=== PATIENT | male | born 1945 | race Caucasian/White ===

== ENCOUNTER 2017-03-04 19:09 | Inpatient (IN) ==
[2017-03-04] MEDS ORDERED: Clindamycin 900 MG/50 ML 900 MG/50 ML IV.SOLN IVPB ONE (19:58)
--- NOTE | 2017-03-04 20:05 | Emergency Department Note ---
Disposition Clinical Impression: Cellulitis Qualifiers: Site of cellulitis: extremity Site of cellulitis of extremity: lower extremity Laterality: right Qualified Code(s): L03.115 - Cellulitis of right lower limb Disposition: Admitted As Inpatient Condition: Undetermined Time of Disposition: 20:22 Wound/Laceration HPI - General Chief Complaint: ED Wound/Laceration Stated Complaint: from UC// cellulitis Time Seen by Provider: 03/04/17 19:50 Source: patient, family Mode of arrival: wheelchair Limitations: no limitations Nursing Notes Reviewed: Yes Vital Signs Reviewed: Yes - History of Present Illness HPI Narrative: 71-year-old male with history of COPD, hypertension, arrives [facility] emergency department roughly 6 days after the patient fell into a saw blade. The patient states that he had a laceration but waited at roughly 9 hours before coming into the emergency department. The patient states that he had his laceration sewn up here in the emergency departmentto [facility]. The patient states over the course of the past 6 days he has become extremely tender in his right lower extremity as well as worsening erythema. The patient denies any fevers but does admit to chills. The patient has been taking his antibiotic as prescribed. The patient states that his marked the erythema on Monday, 3 days ago. The patient's erythema has worsened since then. The patient admits to moderate to severe amount of tenderness in his right lower extremity. The patient does have peripheral vascular disease but palpable pulses of bilateral lower extremities. The patient states he is having difficulty ambulating due to the pain. Patient denies any other symptoms at this time. Onset (ago): day(s) (6) Extremity Location: Right: lower leg Place: home Patient Tetanus UTD: Yes Mechanism: fall Associated symptoms: Reports: none Pain Severity: severe Pain Scale: 9 Treatments prior to arrival: other (antibiotics, dressing, suture) - Related Data Home Medications Medication Instructions Recorded Confirmed Albuterol Sulfate [Albuterol 2 puff IH Q4HR PRN 04/24/15 01/23/17 Inhaler] Allopurinol [Zyloprim] 300 mg PO QAM 04/24/15 01/23/17 Budesonide/Formoterol 160/4.5 2 puff IH BID PRN 04/24/15 01/23/17 [Symbicort] Cholecalciferol (Vitamin D3) 2,000 unit PO QAM 04/24/15 01/23/17 [Vitamin D3] HYDROcodone/Acet 7.5/325 mg [[place] 1 tab PO QID PRN 04/24/15 01/23/17 7.5-325 mg] Omeprazole [PriLOSEC] 20 mg PO QAM 04/24/15 01/23/17 Lisinopril [Zestril] 2.5 mg PO DAILY 07/30/15 01/23/17 Albuterol Neb [AccuNeb] 1.25 mg IH AD 01/23/17 01/23/17 Tiotropium [Spiriva] 18 mcg IH 0700 01/23/17 01/23/17 Previous Rx's Medication Instructions Recorded Rivaroxaban [Xarelto] 15 mg PO QAM #90 tablet 05/26/15 Furosemide [Lasix] 20 mg PO DAILY 30 Days 10/23/15 Sulfamethoxazole/Trimeth DS 1 each PO BID #14 tablet 02/26/17 [Bactrim DS] Allergies Allergy/AdvReac Type Severity Reaction Status Date / Time Tizanidine [From Zanaflex] Allergy Hypotension Verified 03/04/17 19:14 gabapentin [From Neurontin] AdvReac See Verified 01/23/17 15:23 Comments Hydromorphone [From Dilaudid] AdvReac Vomiting Verified 03/04/17 19:14 Pneumococcal Vaccine AdvReac Redness of Verified 01/23/17 15:23 Skin All systems ED: reviewed and negative except as stated. Constitutional: Reports: chills. Denies: fever, weakness, weight change Cardiovascular: Denies: chest pain, palpitations, dyspnea on exertion, edema, syncope Respiratory: Denies: cough, dyspnea, wheezes, hemoptysis, stridor Gastrointestinal: Denies: abdominal pain, nausea, vomiting, diarrhea, constipation, hematemesis, melena, hematochezia Genitourinary: Denies: urgency, dysuria, frequency, hematuria Musculoskeletal: Reports: myalgia. Denies: back pain, neck pain, arthralgia Integumentary: Reports: lesions. Denies: rash, abrasion Neurological: Denies: headache, weakness, numbness, paresthesias, confusion, abnormal gait, vertigo Past Medical History - Past Medical History Attestation: Yes The following information was validated with the patient. Source: patient Medical history: Reports: atrial fibrillation, COPD, DVT, hypertension, pulmonary embolus, other Surgical history: Reports: herniorrhaphy, knee replacement, orthopedic, other, sinus surgery, other Psychiatric history: Reports: no psych history - Social History Smoking Status: Never smoker Smokeless Tobacco Status: No Alcohol use: Reports: none Drug use: Reports: none Physical Exam - General Limitations: no limitations General appearance: alert, in no apparent distress - ENT ENT exam: normal exam, normal oropharynx, mucous membranes moist - Neck Neck exam: Present: normal inspection, full ROM, trachea midline - Chest Chest inspection: Present: normal inspection, symmetric chest wall rise - Respiratory Respiratory exam: Present: normal lung sounds bilaterally - Cardiovascular Cardiovascular exam: Present: regular rate, irregular rhythm, normal heart sounds - Abdominal Exam Abdominal exam: Present: soft, Non-Tender. Absent: tenderness, distention, guarding, rebound, rigidity - Extremities Exam Extremities exam: Present: full ROM, tenderness (RLE), other (6 cm laceration with suture repair with surrounding erythema on right lower extremity anterior stark. The patient has a large amount of tenderness in the same location. There is a moderate amount of erythema that is both superior and inferior to laceration site.) - Back Exam Back exam: Present: normal inspection, full ROM. Absent: tenderness - Neurological Exam Neurological exam: Present: alert, oriented X3 Course Vital Signs Temperature 97.8 F 03/04/17 19:14 Pulse Rate 55 03/04/17 19:14 Respiratory Rate 18 03/04/17 19:14 Blood Pressure 107/66 03/04/17 19:14 O2 Sat by Pulse Oximetry 94 03/04/17 19:14 Temperature 97.8 F 03/04/17 19:14 Pulse Rate 55 03/04/17 19:14 Respiratory Rate 18 03/04/17 19:14 Blood Pressure 107/66 03/04/17 19:14 O2 Sat by Pulse Oximetry 94 03/04/17 19:14 Oxygen Delivery Oxygen Delivery Room Air Wound/Laceration - [facility] Narrative Medical decision making narrative: Patient's x-ray at bedside reveals no obvious gas or deformity to bone. Labs are currently pending. We began the patient on IV clindamycin. This was discussed with the hospitalist, Dr. Mendoza, who accepts the patient to the hospital for admission. - Lab Data Result diagrams: 03/04/17 20:27 Lab Results 03/04/17 Range/Units 20:27 WBC 9.4 (4.3-11.1) K/mcL RBC 5.83 H (4.19-5.50) M/mcL Hgb 15.2 (12.9-16.9) g/dL Hct 47.4 (37.5-50.1) % MCV 81.3 L (83.0-100.0) fL MCH 26.1 L (28.0-33.3) pg MCHC 32.1 (31.6-35.5) g/dL RDW 21.1 H (11.5-14.5) % Plt Count 252 (140-400) K/mcL MPV 9.9 (9.4-12.4) fL Immature Gran % 0.4 (0-4) % Seg Neutrophils % 73.1 % Lymphocytes % 11.0 % Monocytes % 8.3 % Eosinophils % 6.0 % Basophils % 1.2 % Neutrophils # 6.9 (1.6-8.9) K/mcL Lymphocytes # 1.0 (0.6-4.6) K/mcL Monocytes # 0.8 (0.0-1.3) K/mcL Eosinophils # 0.6 (0.0-0.6) K/mcL Basophils # 0.1 (0.0-0.2) K/mcL Attestation Statement - Attestation Attestation: Patient was seen with resident physician. I reviewed the history, physical, assessment and plan, and agree with the findings. I also personally evaluated this patient and had aays-tc-lmpi time with this patient. 71-year-old male presents to the emergency department with worsening redness and infection of the right lower extremity. Patient lacerated his wound approximately a week ago working on some kind of saw. Patient states that he was seen in the emergency department approximately 10 hours after the original injury. The wound was repaired using started on Bactrim. But in going home he has noticed that the erythema which was originally marked on his gotten bigger in the areas gotten more painful. He was seen in urgent care who thought that he probably needed IV antibiotics was sent to the emergency department. Patient has a history of pulmonary embolism as well as atrial fibrillation. For which he takes medication. On examination vital signs are stable. ENT is unremarkable. Heart normal. Lungs normal. [place]man soft nontender. Extremities patient has evidence of venous insufficiency in the right lower extremity anterior stark he has multiple intact sutures but an area of what appears to be centralized necrosis that is mild in nature, and an area of expanding erythema which is tender to palpation and mildly warm. Neurologically patient is intact. ED course. X-rays do not reveal any obvious bony abnormality or gas in the tissue. We will start with IV clindamycin and admit the patient for IV antibiotic therapy. Hospitalist was notified as the need for admission. Agree with resident physician assessment and plan.
[2017-03-04 20:42] LABS: Basophils # 0.1 K/mcL (0.0-0.2); Basophils % 1.2 %; Eosinophils # 0.6 K/mcL (0.0-0.6); Hematocrit 47.4 % (37.5-50.1); Hemoglobin 15.2 g/dL (12.9-16.9); Immature Granulocytes % 0.4 % (0-4); Mean Corpuscular HGB Conc 32.1 g/dL (31.6-35.5); Mean Corpuscular Hemoglobin 26.1 pg (28.0-33.3); Mean Corpuscular Volume 81.3 fL (83.0-100.0); Mean Platelet Volume 9.9 fL (9.4-12.4); Monocytes # 0.8 K/mcL (0.0-1.3); Monocytes % 8.3 %; Neutrophils # 6.9 K/mcL (1.6-8.9); Platelet Count 252 K/mcL (140-400); Red Blood Count 5.83 M/mcL (4.19-5.50); Red Cell Distribution Width 21.1 % (11.5-14.5); Segmented Neutrophils % 73.1 %
[2017-03-04 20:57] LABS: Calcium 9.6 mg/dL (8.6-10.8); Potassium 4.6 mEq/L (3.5-4.5)
[2017-03-04] MEDS ORDERED: Naloxone 0.4 MG/ML INJ IVP PRN (21:31)
[2017-03-04] MEDS ORDERED: Acetaminophen 325 MG TABLET PO PRN (21:31)
[2017-03-04] MEDS ORDERED: Ondansetron 4 MG/2 ML VIAL IVP PRN (21:31)
[2017-03-04] MEDS ORDERED: Dextrose Gel 15 GM PO PRN ×2 (21:34)
[2017-03-04] MEDS ORDERED: *HR* Dextrose 50 % in Water (Syg) 50 ML SYRINGE IVP PRN (21:34)
[2017-03-04] MEDS ORDERED: D5% in Water 1,000 ML IVC PRN (21:34)
--- NOTE | 2017-03-04 21:40 | Internal Med History&Physical ---
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 (3) Essential hypertension Current visit: Yes Status: Chronic Essential hypertension, controlled, continue home meds, monitor (4) COPD (chronic obstructive pulmonary disease) Current visit: Yes Status: Chronic Chronic stable, not in exacerbation Continue Symbicort and Spiriva Qualifiers: COPD type: emphysema Emphysema type: unspecified Qualified Code(s): J43.9 - Emphysema, unspecified (5) JAIDA (obstructive sleep apnea) Current visit: Yes Status: Chronic Chronic obstructive sleep apnea Continue CPAP (6) Atrial fibrillation Current visit: No Status: Chronic Chronic atrial fibrillation, rate controlled Continue anticoagulation with Xarelto Qualifiers: Atrial fibrillation type: chronic Qualified Code(s): I48.2 - Chronic atrial fibrillation (7) Morbid obesity Current visit: Yes Status: Chronic Qualifiers: Obesity type: unspecified obesity type Qualified Code(s): E66.01 - Morbid ( severe) obesity due to excess calories (8) DVT prophylaxis Current visit: Yes Status: Acute Continue Xarelto Internal Medicine - H&P: HPI Admitted From: Emergency Dept History of present illness: Mr. Fernando is a 71 year old male with past medical history of atrial fibrillation, COPD, DVT, PE, obstructive sleep apnea and hypertension. Patient presents to the ED with complaints of pain and redness over her right lower leg. Patient states he had a laceration about 6 days ago, which required sutures. He apparently fell on the saw blade. Patient apparently waited for about the 9 hours before coming into the ED for the laceration. Patient states he is having worsening redness and pain over his right lower leg. Worse with movement. No alleviating factors. Pain is sharp and rates it about 7 out of 10. Pain does not radiate. He does have mild right lower leg swelling. Denies chest pain, denies shortness of breath, denies palpitations, denies dizziness or lightheadedness denies cough or abdominal pain or nausea or vomiting. No other associated symptoms. On examination patient is awake and alert. Not in any distress. Able to provide all history. No family at bedside. Initial workup shows white count of 9.4 and creatinine of 2.36. Extremities right lower leg does not show any acute process. Patient is not tachycardic and does not have fever. There is tenderness and erythema of the right lower extremity anteriorly, extending from the laceration site down to almost his foot. Patient does have a healing laceration with sutures. Patient is being admitted for cellulitis of the right lower leg. He will need IV antibiotics. He has been on by mouth Bactrim for the past 6 days. Patient has been explained about his condition and plan of care. He understood and agreed. No unanswered questions. CODE STATUS full code Past Med Surg Social Fam HX - Past Medical History Medical history: atrial fibrillation, COPD, DVT, hypertension, pulmonary embolus , other Psychiatric history: no psych history - Past Surgical History Surgical History: herniorrhaphy, knee replacement, orthopedic, other, sinus surgery, other - Social History Smoking Status: Never smoker Smokeless Tobacco Status: No Alcohol use: none Drug use: none - Family History Father Adopted: No Living Status: Hx Family Cardiac Disorders: Yes Hx Family Respiratory Disorders: Yes Hx Family Cancer: No Hx Family GI Disorders: No Hx Family Endocrine Disorder: No Hx Family Neuromuscular Disorders: No Hx Family Neurologic Disorders: No Hx Family HEENT Disorders: No Hx Family Autoimmune Disorders: No Mother Adopted: No Living Status: Hx Family Autoimmune Disorders: Yes Brother Living Status: Still Living Hx Family Cancer: Yes (gabe) Internal Medicine - H&P: Meds Albuterol Sulfate [Albuterol Inhaler] 2 puff IH Q4HR PRN 04/24/15 [History] Allopurinol [Zyloprim] 300 mg PO QAM 04/24/15 [History] Budesonide/Formoterol 160/4.5 [Symbicort] 2 puff IH BID PRN 04/24/15 [History] Cholecalciferol (Vitamin D3) [Vitamin D3] 2,000 unit PO QAM 04/24/15 [History] HYDROcodone/Acet 7.5/325 mg [[place] 7.5-325 mg] 1 tab PO QID PRN 04/24/15 [ History] Omeprazole [PriLOSEC] 20 mg PO QAM 04/24/15 [History] Rivaroxaban [Xarelto] 15 mg PO QAM #90 tablet 05/26/15 [Rx] Lisinopril [Zestril] 2.5 mg PO DAILY 07/30/15 [History] Furosemide [Lasix] 20 mg PO DAILY 30 Days 10/23/15 [Rx] Albuterol Neb [AccuNeb] 1.25 mg IH AD 01/23/17 [History] Tiotropium [Spiriva] 18 mcg IH 0700 01/23/17 [History] Sulfamethoxazole/Trimeth DS [Bactrim DS] 1 each PO BID #14 tablet 02/26/17 [Rx] Allergies Tizanidine [From Zanaflex] Allergy (Verified 03/04/17 19:14) Hypotension gabapentin [From Neurontin] Adverse Reaction (Verified 01/23/17 15:23) See Comments Makes him feel odd. Hydromorphone [From Dilaudid] Adverse Reaction (Verified 03/04/17 19:14) Vomiting Pneumococcal Vaccine Adverse Reaction (Verified 01/23/17 15:23) Redness of Skin All Systems PM: A 10-system review of systems was performed and is negative for pertinent findings except as documented above in the HPI. - Constitutional Constitutional: fatigue, no fever(s) - EENT Eyes: no blurry vision, no loss of vision - Cardiovascular Cardiovascular ROS IM: no chest pain, no diaphoresis, no dyspnea, no dyspnea on exertion, no lightheadedness, no syncope - Respiratory Respiratory: no cough, no dyspnea, no dyspnea on exertion, no wheezing, no chest congestion - Gastrointestinal Gastrointestinal: no abdominal pain, no cramping, no diarrhea, no vomiting - Musculoskeletal Musculoskeletal ROS IM: other (Right lower leg pain) - Integumentary Integumentary IM: erythema - Neurological Neurological ROS: no abnormal gait, no abnormal speech, no dizziness, no focal weakness, no loss of vision - Constitutional Vitals: Temp Pulse Resp BP Pulse Ox 97.8 F 55 16 109/64 96 03/04/17 19:14 03/04/17 21:03 03/04/17 21:25 03/04/17 21:25 03/04/17 21:03 General appearance: Present: A&O X 3, morbidly obese, pleasant, no acute distress, answers questions appropriately - Head Head exam: Present: atraumatic - ENT ENT exam: Present: mucous membranes moist - Neck Neck exam general surgery: Present: supple - Respiratory Respiratory exam: Present: CTAB. Absent: rales, rhonchi, tachypnea - Cardiovascular Cardiovascular exam: Present: RRR, +S1, +S2 - GI/Abdominal GI/Abdominal exam: Present: distended (Obese), soft. Absent: firm, guarding, tenderness - Extremities Exam Extremities exam: Present: radial pulses palpable and symetrical. Absent: cyanotic Additional comments: Right lower leg erythema++, tenderness++, swelling+, healing laceration Cellulitis of right lower leg measuring almost 8 cm x 5 cm - Neurological Exam Neurological exam: Present: alert, oriented X3, no focal deficits Internal Med - H&P Results - Labs CBC & Chem 7: 03/04/17 20:27 03/04/17 20:27
[2017-03-04] MEDS ORDERED: Albuterol Neb 1.25 MG/3 ML VIAL IH SCH (21:45)
[2017-03-04] MEDS ORDERED: 0.9 % Sodium Chloride 1,000 ML IVC SCH (21:45)
[2017-03-04 21:50] LABS: INR 1.9
[2017-03-04] MEDS: Vancomycin 2,000 MG in D5% in Water 500 ML IVPB SCH (23:12)
[2017-03-04] MEDS: Budesonide/Formoterol 160/4.5 MDI IH SCH (23:33)
[2017-03-05] MEDS ORDERED: Insulin LISPRO 300 UNITS/3 ML VIAL SQ SCH
[2017-03-05] MEDS: Piperacillin/Tazobactam 3.375 GM in D5% in Water (Mini-Bag+) 100 ML IVPB SCH ×3 (01:00→16:38)
[2017-03-05] MEDS: *HR* Morphine 2 MG/ML SYRINGE IVP PRN ×4 (03:36→22:05)
[2017-03-05 04:03] LABS: Hematocrit 44.4 % (37.5-50.1); Hemoglobin 14.3 g/dL (12.9-16.9); Mean Corpuscular HGB Conc 32.2 g/dL (31.6-35.5); Mean Corpuscular Hemoglobin 25.9 pg (28.0-33.3); Mean Corpuscular Volume 80.4 fL (83.0-100.0); Mean Platelet Volume 9.6 fL (9.4-12.4); Platelet Count 222 K/mcL (140-400); Red Blood Count 5.52 M/mcL (4.19-5.50); Red Cell Distribution Width 20.6 % (11.5-14.5)
[2017-03-05 04:13] LABS: Magnesium 2.1 mg/dL (1.6-2.6); Potassium 4.2 mEq/L (3.5-4.5)
[2017-03-05] MEDS ORDERED: Vancomycin 1,000 MG in D5% in Water 250 ML IVPB SCH (06:00)
[2017-03-05] MEDS: Famotidine 20 MG/2 ML VIAL IVP SCH ×2 (06:05→16:38)
[2017-03-05] MEDS: Tiotropium 18 MCG inhalation IH SCH (08:18)
[2017-03-05] MEDS: Budesonide/Formoterol 160/4.5 MDI IH SCH ×2 (08:19→20:27)
[2017-03-05] MEDS: Furosemide 20 MG TABLET PO SCH (08:30)
[2017-03-05] MEDS: Cholecalciferol (D-3) 1,000 UNIT TABLET PO SCH (08:30)
[2017-03-05] MEDS: *HR* Rivaroxaban 15 MG TABLET PO SCH (08:30)
--- NOTE | 2017-03-05 14:46 | Electrocardiograph Report ---
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
--- NOTE | 2017-03-05 16:38 | Internal Med Progress Note ---
Date of Encounter: 03/05/17 Time of Encounter: 16:35 - Assessment and plan (1) COPD (chronic obstructive pulmonary disease) Current Visit: Yes Status: Chronic Assessment and plan: Similar this point continue inhalers continue inhalers Qualifiers: COPD type: emphysema Emphysema type: unspecified Qualified Code(s): J43.9 - Emphysema, unspecified (2) Renal failure (ARF), acute on chronic Current Visit: Yes Status: Acute Assessment and plan: Acute on chronic renal failure I will however we do not know his baseline. With IV fluid creatinine has slowly started coming down and will monitor it. (3) Laceration of lower leg, right Current Visit: Yes Status: Acute Qualifiers: Encounter type: initial encounter Qualified Code(s): S81.811A - Laceration without foreign body, right lower leg, initial encounter (4) Cellulitis of right leg Current Visit: Yes Status: Acute Assessment and plan: His right leg is quite tender I will try to rule out osteoarthritis by ordering a bone scan and CRP he is already on IV vancomycin and clindamycin. Admitting M.D. also put him on Zosyn which seems excessive and can be DC'd once cultures are available. (5) DVT prophylaxis Current Visit: Yes Status: Acute Assessment and plan: Already on anticoagulation at [facility] (6) Atrial fibrillation Current Visit: Yes Status: Chronic Assessment and plan: On anticoagulation and rate control Qualifiers: Atrial fibrillation type: chronic Qualified Code(s): I48.2 - Chronic atrial fibrillation - Subjective Interval history: Mr. Jamie Fernando is a 71-year-old male is admitted for right lower extremity cellulitis. Apparently a few days back circular saw fell on his right leg and he sustained several sutures. Not the area surrounding sutures has got red and painful and therefore he came to ER. His requested to be admitted. His IV antibiotics including vancomycin, clindamycin and Zosyn. In the right leg sutured wound does not look good and is quite tender and probably sutures need to be removed. Since this is right at his stark I will order a bone scan and CRP as well as repeat white count and a CMP to rule out osteomyelitis. I will also consult orthopedics. Patient creatinine is elevated and he came in with 2.36 level which has come down to 1.9 this morning. I am not sure if this is old or new but since it is improving we should continue IV antibiotics. He also has history of DVT and PE. His INR on admission is 1.9. He is on Xarelto. - Constitutional Vitals: Temp Pulse Resp BP Pulse Ox 98.3 F 67 20 90/52 98 03/05/17 15:02 03/05/17 15:02 03/05/17 15:02 03/05/17 15:02 03/05/17 15:02 General appearance: Present: A&O X 3, morbidly obese, pleasant, no acute distress, answers questions appropriately - Head Head exam: Present: atraumatic, normocephalic - Eye Eye exam: Present: PERRL, conjuntiva pink, sclera anicteric Pupils: Present: PERRL - Neck Neck exam general surgery: Present: supple, trachea midline. Absent: lymphadenopathy - Respiratory Respiratory exam: Present: CTAB. Absent: accessory muscle use, rales, rhonchi, wheezes - Cardiovascular Cardiovascular exam: Present: RRR, +S1, +S2. Absent: diastolic murmur, gallop, rubs, systolic murmur - GI/Abdominal GI/Abdominal exam: Present: normal bowel sounds, soft, no peritoneal signs. Absent: distended, tenderness - Extremities Exam Extremities exam: Present: tenderness, warm, radial pulses palpable and symetrical. Absent: calf tenderness, cyanotic, pedal edema Additional comments: Right lower extremity examined and around the midshaft stark there is a well sutured wound and the surrounding area seems quite indurated and tender and suture seems very tight. As I press gently cause a lot of pain and I was not even able to put enough pressure that I could touch the bone and stark area. I think the sutures need to be out. I tried Homans sign and it is negative - Neurological Exam Neurological exam: Present: CN II-XII intact, oriented X3, no focal deficits. Absent: pronater drift, facial droop, speech deficit - Skin Skin exam: Present: dry, intact Internal Medicine: Result - Labs CBC & Chem 7: 03/05/17 03:43 03/05/17 03:43 Labs: Short CBC 03/05/17 Range/Units 03:43 WBC 7.6 (4.3-11.1) K/mcL Hgb 14.3 (12.9-16.9) g/dL Hct 44.4 (37.5-50.1) % Plt Count 222 (140-400) K/mcL BMP 03/05/17 03:43 Sodium 134 L Potassium 4.2 Chloride 102 Carbon Dioxide 21 BUN 32 H Creatinine 1.94 H Glucose 122 H Calcium 9.0 - ABG Interpretation ABG results: PT/INR, D-dimer PT 21.0 Seconds (9.4-12.1) H 03/04/17 20:27 - Impressions Impressions Chest X-Ray 03/05/17 07:00 IMPRESSION: Stable cardiomegaly and emphysema. No superimposed acute process. No significant change compared to 10/21/2015. D/ / 03/05/2017 09:22:21 Lawrence Schofield MD / sonia Interpreting Provider: Lawrence Schofield MD Consult Discharge Plan - Plan Referrals: Mirela Whitaker, VIDEO CONTROL ENGINEER [Primary Care Provider] -
[2017-03-05 18:21] LABS: Bilirubin,Urine Negative (Negative); Blood,Urine Negative (Negative); Clarity,Urine Clear (Clear); Color,Urine Yellow (Yellow); Glucose,Urine (UA) Normal (Normal); Ketones,Urine Negative (Negative); Leukocyte Esterase,Urine Negative (Negative); Nitrite,Urine Negative (Negative); Protein,Urine Negative (Neg-Trace); Specific Gravity,Urine 1.015 (1.010-1.025); Urobilinogen,Urine Normal (Normal)
--- NOTE | 2017-03-05 19:59 | Orthopedic Consult Note ---
Date of Encounter: 03/05/17 Time of Encounter: 19:52 History of Present Illness Chief complaint: Pain and swelling right stark HPI: Mr. Fernando is a 71 year old male that sustained a laceration to his right proximal anterior tibia one week ago. The patient reportedly fell in the kitchen of the home that he been working on. He struck his right proximal tibia. He is unsure of exactly what he hit, questioning whether there was a sawblade that he struck. He ultimately presented to an urgent care then to [facility]'s emergency room for definitive treatment. He had the wound was sutured. He was sent home on Bactrim prophylaxis. The patient's case is complicated by the fact that he is on Xarelto. Patient also has a knee replacement in the right leg. For complete history and physical data please refer the completed portion of the medical record. Pertinent orthopedic examination reveals a well-healed midline incision over the right knee. The right leg shows a repaired laceration obliquely across the proximal third of the anterior tibia. There is some eschar formation. Repair is intact. There is ruborous skin changes from the wound distal. This is associated with edema in the leg and foot. There are skin wrinkles about the laceration site. Neurosensory exam is intact. Left lower extremity shows brawny skin changes. Reviewed x-rays of the tibia and fibula. This shows no bony changes. A revision type prosthesis in the knee appears to be stable without complicating features. Impression: Healing traumatic laceration right anterior proximal leg Recommendation: I discussed with the patient that I do not see any worrisome findings at this time. I do recommend that he be very conscientious about elevation. I will also recommend the use of Neosporin or bacitracin and a nonadherent dressing. I would maintain the sutures for at least another 5-7 days. These can be taken out by his family physician. I think the patient did have some excessive bleeding due to the Xarelto use, this should not be a concern at this time as all bleeding should have stopped. I discussed with the patient that he is going to have some degree of dependent swelling for a period of time and that elevation is most important in that he can do for his leg. Thank you very much for allowing me to see care for Mr. Fernando. Sincerely, Bob Foote,DO Past Med Surg Social Fam HX - Past Medical History Medical history: atrial fibrillation, COPD, DVT, hypertension, pulmonary embolus , other Psychiatric history: no psych history - Past Surgical History Surgical History: herniorrhaphy, knee replacement, orthopedic, other, sinus surgery, other - Social History Smoking Status: Never smoker Smokeless Tobacco Status: No Alcohol use: none Drug use: none - Family History Father Adopted: No Living Status: Hx Family Cardiac Disorders: Yes Hx Family Respiratory Disorders: Yes Hx Family Cancer: No Hx Family GI Disorders: No Hx Family Endocrine Disorder: No Hx Family Neuromuscular Disorders: No Hx Family Neurologic Disorders: No Hx Family HEENT Disorders: No Hx Family Autoimmune Disorders: No Mother Adopted: No Living Status: Hx Family Autoimmune Disorders: Yes Brother History Unknown: Yes Adopted: No Age: 72 Family Member Ethnicity: Non- Living Status: Still Living Hx Family Cardiac Disorders: No Hx Family Respiratory Disorders: No Hx Family Cancer: Yes (gabe) Hx Family GI Disorders: No Hx Family Genitourinary Disorders: No Hx Family Endocrine Disorder: No Hx Family Musculoskeletal Disorders: No Hx Family Neuromuscular Disorders: No Hx Family Neurologic Disorders: No Hx Family HEENT Disorders: No Hx Family Autoimmune Disorders: No Hx Family Reproductive Disorders: No Hx Family Psychosocial Disorders: No Hx Family Medical Disorders: No Medications and Allergies Albuterol Sulfate [Albuterol Inhaler] 2 puff IH Q4HR PRN 04/24/15 [History] Allopurinol [Zyloprim] 300 mg PO QAM 04/24/15 [History] Budesonide/Formoterol 160/4.5 [Symbicort] 2 puff IH BID PRN 04/24/15 [History] Cholecalciferol (Vitamin D3) [Vitamin D3] 2,000 unit PO QAM 04/24/15 [History] HYDROcodone/Acet 7.5/325 mg [[place] 7.5-325 mg] 1 tab PO QID PRN 04/24/15 [ History] Omeprazole [PriLOSEC] 20 mg PO QAM 04/24/15 [History] Lisinopril [Zestril] 10 mg PO DAILY 07/30/15 [History] Albuterol Neb [AccuNeb] 1.25 mg IH TID 01/23/17 [History] Tiotropium [Spiriva] 18 mcg IH 0700 01/23/17 [History] Sulfamethoxazole/Trimeth DS [Bactrim DS] 1 each PO BID #14 tablet 02/26/17 [Rx] Furosemide [Lasix] 40 mg PO QAM 03/05/17 [History] Rivaroxaban [Xarelto] 20 mg PO DAILY 03/05/17 [History] Allergies Tizanidine [From Zanaflex] Allergy (Verified 03/04/17 19:14) Hypotension gabapentin [From Neurontin] Adverse Reaction (Verified 01/23/17 15:23) See Comments Makes him feel odd. Hydromorphone [From Dilaudid] Adverse Reaction (Verified 03/04/17 19:14) Vomiting Pneumococcal Vaccine Adverse Reaction (Verified 01/23/17 15:23) Redness of Skin All Systems Reviewed: A 10-system review of systems was performed and is negative for pertinent findings except as documented above in the HPI. Physical Exam - Constitutional Vitals: Temp Pulse Resp BP Pulse Ox 98.3 F 67 20 90/52 98 03/05/17 15:02 03/05/17 15:02 03/05/17 15:02 03/05/17 15:02 03/05/17 15:02 Results - Labs Result Diagrams: 03/05/17 03:43 03/05/17 03:43 Labs: Abnormal lab results RBC 5.52 M/mcL (4.19-5.50) H 03/05/17 03:43 MCV 80.4 fL (83.0-100.0) L 03/05/17 03:43 MCH 25.9 pg (28.0-33.3) L 03/05/17 03:43 RDW 20.6 % (11.5-14.5) H 03/05/17 03:43 PT 21.0 Seconds (9.4-12.1) H 03/04/17 20:27 Sodium 134 mEq/L (136-145) L 03/05/17 03:43 BUN 32 mg/dL (8-26) H 03/05/17 03:43 Creatinine 1.94 mg/dL (0.72-1.25) H 03/05/17 03:43 Est GFR ( Amer) 42 (> 60) L 03/05/17 03:43 Est GFR (Non-Af Amer) 34 (> 60) L 03/05/17 03:43 Glucose 122 mg/dL (70-99) H 03/05/17 03:43 POC Glucose 119 (58-89) H 03/04/17 21:54 H & H 03/05/17 Range/Units 03:43 Hgb 14.3 (12.9-16.9) g/dL Hct 44.4 (37.5-50.1) % All other labs normal. - Diagnostic results Knee x-ray: image reviewed (Tibia/Fibula) Consult Discharge Plan - Plan Referrals: Mirela Whitaker, [facility] [Primary Care Provider] -
[2017-03-05] MEDS ORDERED: Neosporin OINT 15 GM TUBE TP SCH (21:00)
[2017-03-05] MEDS: Vancomycin 2,000 MG in D5% in Water 500 ML IVPB SCH (23:03)
[2017-03-06] MEDS: Piperacillin/Tazobactam 3.375 GM in D5% in Water (Mini-Bag+) 100 ML IVPB SCH ×2 (01:08→08:17)
[2017-03-06] MEDS: *HR* Morphine 2 MG/ML SYRINGE IVP PRN (04:22)
[2017-03-06 04:26] LABS: Basophils # 0.1 K/mcL (0.0-0.2); Basophils % 1.4 %; Eosinophils # 0.6 K/mcL (0.0-0.6); Eosinophils % 7.9 %; Hemoglobin 13.9 g/dL (12.9-16.9); Immature Granulocytes % 0.3 % (0-4); Lymphocytes # 1.1 K/mcL (0.6-4.6); Lymphocytes % 14.4 %; Mean Corpuscular HGB Conc 33.1 g/dL (31.6-35.5); Mean Corpuscular Hemoglobin 26.8 pg (28.0-33.3); Mean Corpuscular Volume 81.1 fL (83.0-100.0); Mean Platelet Volume 9.4 fL (9.4-12.4); Monocytes # 0.7 K/mcL (0.0-1.3); Monocytes % 8.7 %; Neutrophils # 5.2 K/mcL (1.6-8.9); Platelet Count 213 K/mcL (140-400); Red Blood Count 5.18 M/mcL (4.19-5.50); Red Cell Distribution Width 20.7 % (11.5-14.5); Segmented Neutrophils % 67.3 %
[2017-03-06 05:30] LABS: Albumin 3.2 g/dL (3.5-5.0); Albumin/Globulin Ratio 1.2 (1.1-2.2); Bilirubin,Total 0.7 mg/dL (0.2-1.2); Calcium 8.9 mg/dL (8.6-10.8); Globulin 2.7 g/dL (2.4-3.5); Total Protein 5.9 g/dL (6.0-8.3)
[2017-03-06 05:32] LABS: Potassium 4.7 mEq/L (3.5-4.5)
[2017-03-06] MEDS: Famotidine 20 MG/2 ML VIAL IVP SCH (05:37)
[2017-03-06] MEDS: Cholecalciferol (D-3) 1,000 UNIT TABLET PO SCH (08:18)
[2017-03-06] MEDS: Furosemide 20 MG TABLET PO SCH (08:18)
[2017-03-06] MEDS: *HR* Rivaroxaban 15 MG TABLET PO SCH (08:18)
[2017-03-06 11:29] VITALS: BP 125/78
[2017-03-06] MEDS: Tiotropium 18 MCG inhalation IH SCH (12:34)
[2017-03-06] MEDS: Budesonide/Formoterol 160/4.5 MDI IH SCH (12:34)
--- NOTE | 2017-03-06 15:44 | Discharge Summary ---
Date of Encounter: 03/06/17 Time of Encounter: 15:42 - Discharge Diagnosis (1) COPD (chronic obstructive pulmonary disease) Priority: Secondary Status: Chronic Qualifiers: COPD type: emphysema Emphysema type: unspecified Qualified Code(s): J43.9 - Emphysema, unspecified (2) Renal failure (ARF), acute on chronic Priority: Secondary Status: Acute (3) Cellulitis of right leg Priority: Primary Status: Acute (4) DVT prophylaxis Priority: Secondary Status: Acute (5) Atrial fibrillation Priority: Secondary Status: Chronic Qualifiers: Atrial fibrillation type: chronic Qualified Code(s): I48.2 - Chronic atrial fibrillation - Discharge Medications Prescriptions: Amoxicillin/Clavulanate [Augmentin] 875 mg PO BIDWM #20 tablet Sulfamethoxazole/Trimeth DS [Bactrim Ds] 1 each PO BID #20 tablet Home Medications: Albuterol Sulfate [Albuterol Inhaler] 2 puff IH Q4HR PRN 04/24/15 [History] Allopurinol [Zyloprim] 300 mg PO QAM 04/24/15 [History] Budesonide/Formoterol 160/4.5 [Symbicort] 2 puff IH BID PRN 04/24/15 [History] Cholecalciferol (Vitamin D3) [Vitamin D3] 2,000 unit PO QAM 04/24/15 [History] HYDROcodone/Acet 7.5/325 mg [[place] 7.5-325 mg] 1 tab PO QID PRN 04/24/15 [ History] Omeprazole [PriLOSEC] 20 mg PO QAM 04/24/15 [History] Lisinopril [Zestril] 10 mg PO DAILY 07/30/15 [History] Albuterol Neb [AccuNeb] 1.25 mg IH TID 01/23/17 [History] Tiotropium [Spiriva] 18 mcg IH 0700 01/23/17 [History] Furosemide [Lasix] 40 mg PO QAM 03/05/17 [History] Rivaroxaban [Xarelto] 20 mg PO DAILY 03/05/17 [History] Acetaminophen [Tylenol] 650 mg PO Q6HR PRN #0 tablet 03/06/17 [Rx] Amoxicillin/Clavulanate [Augmentin] 875 mg PO BIDWM #20 tablet 03/06/17 [Rx] Furosemide [Lasix] 20 mg PO DAILY tablet 03/06/17 [Rx] Prince/Poly/Marina OINT [Triple Antibiotic Ointment] 1 appl TP DAILY tube 03/06/17 [ Rx] Sulfamethoxazole/Trimeth DS [Bactrim Ds] 1 each PO BID #20 tablet 03/06/17 [Rx] Allergies/Adverse Reactions: Allergies Tizanidine [From Zanaflex] Allergy (Verified 03/04/17 19:14) Hypotension gabapentin [From Neurontin] Adverse Reaction (Verified 01/23/17 15:23) See Comments Makes him feel odd. Hydromorphone [From Dilaudid] Adverse Reaction (Verified 03/04/17 19:14) Vomiting Pneumococcal Vaccine Adverse Reaction (Verified 01/23/17 15:23) Redness of Skin Date of admission: 03/04/17 21:31 Primary care physician: Mirela Whitaker CNP Consults: 03/04/17 21:36 Consult to Wound Care [CONS] Routine Reason for Consult: cellulitis Call Completed: No 03/05/17 00:10 Consult to [facility] [employer] [CONS] Routine Reason for SW Consult: Possible need for home IV antibiotics 03/05/17 16:46 Consult to Orthopedic Surgery [CONS] Routine Consulting Provider: [facility] Reason for Consult: right leg cellulitis/ recently sutured right leg wound Time Notified: 16:48 Call Completed: No Discharging clinician: Kenny Atkins Anticipated date of discharge: 03/06/17 - Patient Status Disposition: Home, Self-Care Condition: Fair Overall status at discharge: patient is progressing back to baseline - Discharge Instructions Follow Up With: Mirela Whitaker CNP [Primary Care Provider] - - Diet and Activity Activity: resume usual activities as tolerated Diet: advance to your usual diet (Daily Dressing on Right Leg with Neosporin and Not Adhering Dry Dressing) Hospital course: Mr. Jamie Fernando is a 71-year-old male is admitted for right lower extremity cellulitis. Apparently a few days back circular saw fell on his right leg and he sustained several sutures. the area surrounding sutures has got red and painful and therefore he came to ER. He is requested to be admitted. His IV antibiotics including vancomycin, clindamycin and Zosyn. Orthopedics saw the wound and feels that it does not look too bad and therefore would not need any further intervention or testing.. Patient has C daily and creatinine remained in stable range during this admission. We will switch him to Augmentin and Bactrim and we have asked him to follow with his family doctor in office this week and have him recheck his BMP. He is on Xarelto. - Time Spent with Patient Total time spent providing and/or coordinating discharge services: - Constitutional Vitals: Temp Pulse Resp BP Pulse Ox 97.6 F 51 15 125/78 95 03/06/17 11:25 03/06/17 11:25 03/06/17 11:25 03/06/17 11:25 03/06/17 11:25 General appearance: Present: A&O X 3, morbidly obese, pleasant, no acute distress, answers questions appropriately - Head Head exam: Present: atraumatic, normocephalic - Eye Eye exam: Present: PERRL, conjuntiva pink, sclera anicteric Pupils: Present: PERRL - Neck Neck exam general surgery: Present: supple, trachea midline. Absent: lymphadenopathy - Respiratory Respiratory exam: Present: CTAB. Absent: accessory muscle use, rales, rhonchi, wheezes - Cardiovascular Cardiovascular exam: Present: RRR, +S1, +S2. Absent: diastolic murmur, gallop, rubs, systolic murmur - GI/Abdominal GI/Abdominal exam: Present: normal bowel sounds, soft, no peritoneal signs. Absent: distended, tenderness - Extremities Exam Extremities exam: Present: warm, radial pulses palpable and symetrical. 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 - Neurological Exam Neurological exam: Present: CN II-XII intact, oriented X3, no focal deficits. Absent: pronater drift, facial droop, speech deficit - Skin Skin exam: Present: dry, intact
[2017-03-06] MEDS ORDERED: Aminoglycoside Consult 1 EACH MC ONE (16:35)
== END 2017-03-06 16:36 | disposition home or self-care (01) | DRG 603 ==
LOC: 3NENU 19:09 → EMEROO 19:09 → 3NENU 21:58
PROVIDERS: ADMIT Family Medicine; ATTEND Internal Medicine

== ENCOUNTER 2017-08-04 10:47 | Inpatient (IN) ==
[2017-08-04] MEDS ORDERED: Ipratropium/Albuterol Neb 3 ML IH ONE (11:10)
[2017-08-04] MEDS ORDERED: methylPREDNISolone 125 MG/2 ML VIAL IVP ONE (11:10)
--- NOTE | 2017-08-04 11:24 | Emergency Department Note ---
Disposition Clinical Impression: Acute exacerbation of chronic obstructive airways disease, Elevated d-dimer Disposition: Admitted As Inpatient Condition: Fair General Adult HPI - General Chief complaint: ED Shortness of Breath/Dyspnea Stated complaint: Can't Breathe Time Seen by Provider: 08/04/17 10:57 Source: patient Limitations: no limitations Nursing Notes Reviewed: Yes Vital Signs Reviewed: Yes - History of Present Illness Pain Scale: 8 - Related Data Home Medications Medication Instructions Recorded Confirmed Albuterol Sulfate [Albuterol 2 puff IH Q4HR PRN 04/24/15 08/04/17 Inhaler] Allopurinol [Zyloprim] 300 mg PO QAM 04/24/15 08/04/17 Budesonide/Formoterol 160/4.5 2 puff IH BID PRN 04/24/15 08/04/17 [Symbicort] Cholecalciferol (Vitamin D3) 2,000 unit PO QAM 04/24/15 08/04/17 [Vitamin D3] HYDROcodone/Acet 7.5/325 mg [[place] 1 tab PO QID PRN 04/24/15 08/04/17 7.5-325 mg] Omeprazole [PriLOSEC] 20 mg PO QAM 04/24/15 08/04/17 Albuterol Neb [AccuNeb] 1.25 mg IH TID PRN 01/23/17 08/04/17 Tiotropium [Spiriva] 18 mcg IH 0700 01/23/17 08/04/17 Furosemide [Lasix] 40 mg PO QAM 03/05/17 08/04/17 Rivaroxaban [Xarelto] 20 mg PO DAILY 03/05/17 08/04/17 Lisinopril [Zestril] 20 mg PO DAILY 08/01/17 08/04/17 Ipratropium Neb [Atrovent Neb] 0.5 mg IH PRN PRN 08/04/17 08/04/17 Allergies Allergy/AdvReac Type Severity Reaction Status Date / Time gabapentin [From Neurontin] AdvReac See Verified 07/26/17 14:02 Comments Hydromorphone [From Dilaudid] AdvReac Vomiting Verified 07/26/17 14:02 Pneumococcal Vaccine AdvReac Redness of Verified 07/26/17 14:02 Skin Tizanidine [From Zanaflex] AdvReac Hypotension Verified 08/01/17 11:05 Past Medical History - Past Medical History Medical history: Reports: atrial fibrillation, COPD, DVT, GERD, hypertension, pulmonary embolus, other Surgical history: Reports: herniorrhaphy, knee replacement, orthopedic, other, sinus surgery, other Psychiatric history: Reports: no psych history - Social History Smoking Status: Former smoker Smokeless Tobacco Status: No Alcohol use: Reports: none Drug use: Reports: none Physical Exam - General Limitations: no limitations General appearance: alert, in no apparent distress Course Vital Signs Temperature 97.6 F 08/04/17 10:53 Pulse Rate 88 08/04/17 10:53 Respiratory Rate 18 08/04/17 10:53 Blood Pressure 145/79 08/04/17 10:53 O2 Sat by Pulse Oximetry 91 08/04/17 10:53 Temperature 97.8 F 08/04/17 14:25 Pulse Rate 84 08/04/17 14:25 Respiratory Rate 24 08/04/17 16:01 Blood Pressure 167/76 08/04/17 14:25 O2 Sat by Pulse Oximetry 93 08/04/17 16:01 Oxygen Delivery Oxygen Delivery Nasal Cannula Medical Decision Making - [facility] Narrative Medical decision making narrative: I examined this patient and my medical decision-making was reviewed with the Resident Physician. I agree with the documented findings, disposition and treatment plan as described except to the extent set forth below. Patient presents today and was seen by Dr. Barbosa myself, I agree with his evaluation and management plan, I supervised the care of the patient's stay. Patient presents today with some dyspnea. They had ordered a outpatient CT to rule out PE on him but he could not lie flat. He has been off his anticoagulants for 2 days due to some GI procedures. History of atrial fibrillation which she continually has. History of PE. He is having no chest pain. I think this is probably more COPD exacerbation. Wearing his lab work chest x-ray and workup. He most likely will need admission. He is in agreement to this plan. Chest X-Ray 08/04/17 10:58 IMPRESSION: No acute process. D/ / Marlon Mendoza MD / Marlon Mendoza MD Interpreting Provider: Marlon Mendoza MD 1155 hrs.: Patient's d-dimer is elevated. So we will attempt a CTA presuming his creatinine is normal. 1204 hrs.: Patient is feeling better. I think he will tolerate the CTA. His creatinine is normal. He is fluid hydrated. Chest X-Ray 08/04/17 10:58 IMPRESSION: No acute process. D/ / 08/04/2017 11:34:53 Marlon Mendoza MD / annika Interpreting Provider: Marlon Mendoza MD 1248 hrs.: Patient is unable to lay flat still for a CTA. We will start him back on his anticoagulation. Were going to go and bring him into the hospital. Possible signs remote this plan. Patient's critical care time excluding any separately billable procedures is 30 minutes impression is acute exacerbation of COPD, rule out PE. Chronic atrial fibrillation. - Lab Data Result diagrams: 08/04/17 11:34 08/04/17 11:34 Lab Results 08/04/17 08/04/17 08/04/17 Range/Units 11:34 11:34 11:34 WBC 10.4 (4.3-11.1) K/mcL RBC 4.95 (4.19-5.50) M/mcL Hgb 14.2 (12.9-16.9) g/dL Hct 43.6 (37.5-50.1) % MCV 88.1 (83.0-100.0) fL MCH 28.7 (28.0-33.3) pg MCHC 32.6 (31.6-35.5) g/dL RDW 16.4 H (11.5-14.5) % Plt Count 247 (140-400) K/mcL MPV 9.5 (9.4-12.4) fL Immature Gran % 0.7 (0-4) % Seg Neutrophils % 76.6 % Lymphocytes % 8.3 % Monocytes % 7.4 % Eosinophils % 5.6 % Basophils % 1.4 % Neutrophils # 7.9 (1.6-8.9) K/mcL Lymphocytes # 0.9 (0.6-4.6) K/mcL Monocytes # 0.8 (0.0-1.3) K/mcL Eosinophils # 0.6 (0.0-0.6) K/mcL Basophils # 0.2 (0.0-0.2) K/mcL Immature Plt Fraction 2.8 (1.1-6.1) % PT 12.3 H (9.4-12.1) Seconds INR 1.1 D-Dimer 2394 H (0-500) ng/mLFEU Sodium 137 (136-145) mEq/L Potassium 4.1 (3.5-4.5) mEq/L Chloride 103 (98-109) mEq/L Carbon Dioxide 25 (19-29) mEq/L BUN 19 (8-26) mg/dL Creatinine 1.18 (0.72-1.25) mg/dL Est GFR ( Amer) > 60 (> 60) Est GFR (Non-Af Amer) > 60 (> 60) BUN/Creatinine Ratio 16 (6-26) Glucose 148 H (70-99) mg/dL Calculated Osmolality 289 (280-300) Calcium 9.3 (8.6-10.8) mg/dL Troponin I (0-0.03) ng/mL B-Natriuretic Peptide (0-100) pg/mL 08/04/17 08/04/17 Range/Units 11:34 11:34 WBC (4.3-11.1) K/mcL RBC (4.19-5.50) M/mcL Hgb (12.9-16.9) g/dL Hct (37.5-50.1) % MCV (83.0-100.0) fL MCH (28.0-33.3) pg MCHC (31.6-35.5) g/dL RDW (11.5-14.5) % Plt Count (140-400) K/mcL MPV (9.4-12.4) fL Immature Gran % (0-4) % Seg Neutrophils % % Lymphocytes % % Monocytes % % Eosinophils % % Basophils % % Neutrophils # (1.6-8.9) K/mcL Lymphocytes # (0.6-4.6) K/mcL Monocytes # (0.0-1.3) K/mcL Eosinophils # (0.0-0.6) K/mcL Basophils # (0.0-0.2) K/mcL Immature Plt Fraction (1.1-6.1) % PT (9.4-12.1) Seconds INR D-Dimer (0-500) ng/mLFEU Sodium (136-145) mEq/L Potassium (3.5-4.5) mEq/L Chloride (98-109) mEq/L Carbon Dioxide (19-29) mEq/L BUN (8-26) mg/dL Creatinine (0.72-1.25) mg/dL Est GFR ( Amer) (> 60) Est GFR (Non-Af Amer) (> 60) BUN/Creatinine Ratio (6-26) Glucose (70-99) mg/dL Calculated Osmolality (280-300) Calcium (8.6-10.8) mg/dL Troponin I 0.00 (0-0.03) ng/mL B-Natriuretic Peptide 28 (0-100) pg/mL
--- NOTE | 2017-08-04 11:25 | Emergency Department Note ---
Disposition Clinical Impression: Acute exacerbation of chronic obstructive airways disease, Elevated d-dimer Disposition: Admitted As Inpatient Condition: Fair Referrals: Judson Vallejo MD [Family Provider] - Mirela Whitaker CNP [Primary Care Provider] - Forms: ED Satisfaction Letter General Adult HPI - General Chief complaint: ED Shortness of Breath/Dyspnea Stated complaint: Can't Breathe Time Seen by Provider: 08/04/17 10:57 Source: patient Limitations: no limitations Nursing Notes Reviewed: Yes Vital Signs Reviewed: Yes - History of Present Illness HPI Narrative: 72-year-old male past medical history of atrial fibrillation, DVT, PE, hypertension. He presents due to 3-4 days of worsening dyspnea and cough. He states that he is getting to the point that he cannot lay supine. He called his primary care physician who ordered a CTA of the chest. When he arrived he was unable to lay flat for the CTA and so was taken to the emergency department. He denies having a fever. He does wear oxygen as needed at home and has needed to increase the flow rate. He is also using his nebulizer every hour which she says helps her a little bit but then it comes right back. He has not been on steroids recently. Not recently on antibiotics. He is off his anticoagulants and has been for the last 5 days due to receiving a GI scope. Radiation: non-radiation Pain Scale: 8 Consistency: constant Improves with: nothing Worsens with: nothing Associated symptoms: Reports: denies other symptoms Treatments Prior to Arrival: none - Related Data Home Medications Medication Instructions Recorded Confirmed Albuterol Sulfate [Albuterol 2 puff IH Q4HR PRN 04/24/15 08/01/17 Inhaler] Allopurinol [Zyloprim] 300 mg PO QAM 04/24/15 08/01/17 Budesonide/Formoterol 160/4.5 2 puff IH BID PRN 04/24/15 08/01/17 [Symbicort] Cholecalciferol (Vitamin D3) 2,000 unit PO QAM 04/24/15 08/01/17 [Vitamin D3] HYDROcodone/Acet 7.5/325 mg [[place] 1 tab PO QID PRN 04/24/15 08/01/17 7.5-325 mg] Omeprazole [PriLOSEC] 20 mg PO QAM 04/24/15 08/01/17 Albuterol Neb [AccuNeb] 1.25 mg IH TID PRN 01/23/17 08/01/17 Tiotropium [Spiriva] 18 mcg IH 0700 01/23/17 08/01/17 Furosemide [Lasix] 40 mg PO QAM 03/05/17 08/01/17 Rivaroxaban [Xarelto] 20 mg PO DAILY 03/05/17 08/01/17 Lisinopril [Zestril] 20 mg PO DAILY 08/01/17 08/01/17 Ipratropium Neb [Atrovent Neb] 0.5 mg IH PRN PRN 08/04/17 08/04/17 Allergies Allergy/AdvReac Type Severity Reaction Status Date / Time gabapentin [From Neurontin] AdvReac See Verified 07/26/17 14:02 Comments Hydromorphone [From Dilaudid] AdvReac Vomiting Verified 07/26/17 14:02 Pneumococcal Vaccine AdvReac Redness of Verified 07/26/17 14:02 Skin Tizanidine [From Zanaflex] AdvReac Hypotension Verified 08/01/17 11:05 All systems ED: reviewed and negative except as stated. Constitutional: Denies: fever Eyes: Denies: vision change ENT ED: Denies: throat pain Cardiovascular: Reports: dyspnea on exertion, orthopnea. Denies: chest pain Respiratory: Reports: cough, dyspnea, wheezes Gastrointestinal: Denies: abdominal pain Integumentary: Denies: rash Endocrine: Reports: fatigue Past Medical History - Past Medical History Medical history: Reports: atrial fibrillation, COPD, DVT, GERD, hypertension, pulmonary embolus, other Surgical history: Reports: herniorrhaphy, knee replacement, orthopedic, other, sinus surgery, other Psychiatric history: Reports: no psych history - Social History Smoking Status: Former smoker Smokeless Tobacco Status: No Alcohol use: Reports: none Drug use: Reports: none Physical Exam - General Limitations: no limitations General appearance: alert, in no apparent distress - Head Head exam: atraumatic - Eye Eye exam: Present: normal appearance, PERRL - ENT ENT exam: normal exam - Neck Neck exam: Present: normal inspection - Chest Chest inspection: Present: normal inspection - Respiratory Respiratory exam: Present: wheezes, prolonged expiratory phase. Absent: respiratory distress - Abdominal Exam Abdominal exam: Present: soft, Non-Tender - Extremities Exam Extremities exam: Present: normal inspection - Skin Skin exam: Present: warm, dry Course Course Narrative: EKG shows atrial fibrillation but rate is controlled. He has been unable to lay flat for a CTA due to his COPD exacerbation. However he needs to be on anticoagulants anyway so we will go ahead and anticoagulated with Lovenox as he is hemodynamically stable. He does feel improvement after DuoNeb and steroids but still cannot lay flat. He will be admitted for COPD exacerbation Vital Signs Temperature 97.6 F 08/04/17 10:53 Pulse Rate 88 08/04/17 10:53 Respiratory Rate 18 08/04/17 10:53 Blood Pressure 145/79 08/04/17 10:53 O2 Sat by Pulse Oximetry 91 08/04/17 10:53 Temperature 97.6 F 08/04/17 10:53 Pulse Rate 88 08/04/17 10:53 Respiratory Rate 20 08/04/17 11:30 Blood Pressure 145/79 08/04/17 10:53 O2 Sat by Pulse Oximetry 94 08/04/17 11:30 Oxygen Delivery Oxygen Delivery Nasal Cannula Medical Decision Making - Medical Records Medical records reviewed: Yes I reviewed the patient's medical records. - Lab Data Lab results reviewed: Yes I reviewed the patient's lab results. Result diagrams: 08/04/17 11:34 08/04/17 11:34 Lab Results 08/04/17 08/04/17 08/04/17 Range/Units 11:34 11:34 11:34 WBC 10.4 (4.3-11.1) K/mcL RBC 4.95 (4.19-5.50) M/mcL Hgb 14.2 (12.9-16.9) g/dL Hct 43.6 (37.5-50.1) % MCV 88.1 (83.0-100.0) fL MCH 28.7 (28.0-33.3) pg MCHC 32.6 (31.6-35.5) g/dL RDW 16.4 H (11.5-14.5) % Plt Count 247 (140-400) K/mcL MPV 9.5 (9.4-12.4) fL Immature Gran % 0.7 (0-4) % Seg Neutrophils % 76.6 % Lymphocytes % 8.3 % Monocytes % 7.4 % Eosinophils % 5.6 % Basophils % 1.4 % Neutrophils # 7.9 (1.6-8.9) K/mcL Lymphocytes # 0.9 (0.6-4.6) K/mcL Monocytes # 0.8 (0.0-1.3) K/mcL Eosinophils # 0.6 (0.0-0.6) K/mcL Basophils # 0.2 (0.0-0.2) K/mcL Immature Plt Fraction 2.8 (1.1-6.1) % PT 12.3 H (9.4-12.1) Seconds INR 1.1 D-Dimer 2394 H (0-500) ng/mLFEU Sodium 137 (136-145) mEq/L Potassium 4.1 (3.5-4.5) mEq/L Chloride 103 (98-109) mEq/L Carbon Dioxide 25 (19-29) mEq/L BUN 19 (8-26) mg/dL Creatinine 1.18 (0.72-1.25) mg/dL Est GFR ( Amer) > 60 (> 60) Est GFR (Non-Af Amer) > 60 (> 60) BUN/Creatinine Ratio 16 (6-26) Glucose 148 H (70-99) mg/dL Calculated Osmolality 289 (280-300) Calcium 9.3 (8.6-10.8) mg/dL Troponin I (0-0.03) ng/mL B-Natriuretic Peptide (0-100) pg/mL 08/04/17 08/04/17 Range/Units 11:34 11:34 WBC (4.3-11.1) K/mcL RBC (4.19-5.50) M/mcL Hgb (12.9-16.9) g/dL Hct (37.5-50.1) % MCV (83.0-100.0) fL MCH (28.0-33.3) pg MCHC (31.6-35.5) g/dL RDW (11.5-14.5) % Plt Count (140-400) K/mcL MPV (9.4-12.4) fL Immature Gran % (0-4) % Seg Neutrophils % % Lymphocytes % % Monocytes % % Eosinophils % % Basophils % % Neutrophils # (1.6-8.9) K/mcL Lymphocytes # (0.6-4.6) K/mcL Monocytes # (0.0-1.3) K/mcL Eosinophils # (0.0-0.6) K/mcL Basophils # (0.0-0.2) K/mcL Immature Plt Fraction (1.1-6.1) % PT (9.4-12.1) Seconds INR D-Dimer (0-500) ng/mLFEU Sodium (136-145) mEq/L Potassium (3.5-4.5) mEq/L Chloride (98-109) mEq/L Carbon Dioxide (19-29) mEq/L BUN (8-26) mg/dL Creatinine (0.72-1.25) mg/dL Est GFR ( Amer) (> 60) Est GFR (Non-Af Amer) (> 60) BUN/Creatinine Ratio (6-26) Glucose (70-99) mg/dL Calculated Osmolality (280-300) Calcium (8.6-10.8) mg/dL Troponin I 0.00 (0-0.03) ng/mL B-Natriuretic Peptide 28 (0-100) pg/mL - Radiology Data Radiology results reviewed: Yes I reviewed the patient's radiology results. - EKG Data EKG #1 EKG attestation: Yes I reviewed and interpreted this EKG. Rate: normal Rhythm: A.Fib [place]/QRS: normal When compared to previous EKG there are: no significant changes Interpretation: no acute changes
[2017-08-04 11:41] LABS: Basophils # 0.2 K/mcL (0.0-0.2); Basophils % 1.4 %; Eosinophils # 0.6 K/mcL (0.0-0.6); Eosinophils % 5.6 %; Hematocrit 43.6 % (37.5-50.1); Hemoglobin 14.2 g/dL (12.9-16.9); Immature Granulocytes % 0.7 % (0-4); Immature Platelets 2.8 % (1.1-6.1); Lymphocytes # 0.9 K/mcL (0.6-4.6); Lymphocytes % 8.3 %; Mean Corpuscular HGB Conc 32.6 g/dL (31.6-35.5); Mean Corpuscular Hemoglobin 28.7 pg (28.0-33.3); Mean Corpuscular Volume 88.1 fL (83.0-100.0); Mean Platelet Volume 9.5 fL (9.4-12.4); Monocytes # 0.8 K/mcL (0.0-1.3); Monocytes % 7.4 %; Neutrophils # 7.9 K/mcL (1.6-8.9); Platelet Count 247 K/mcL (140-400); Red Blood Count 4.95 M/mcL (4.19-5.50); Red Cell Distribution Width 16.4 % (11.5-14.5); Segmented Neutrophils % 76.6 %
[2017-08-04 11:46] LABS: INR 1.1; Prothrombin Time 12.3 Seconds (9.4-12.1)
[2017-08-04 11:52] LABS: BUN/Creatinine Ratio 16 (6-26); Blood Urea Nitrogen 19 mg/dL (8-26); Calcium 9.3 mg/dL (8.6-10.8); Carbon Dioxide 25 mEq/L (19-29); Chloride 103 mEq/L (98-109); Glucose 148 mg/dL (70-99); Osmolality,Calculated 289 (280-300); Potassium 4.1 mEq/L (3.5-4.5); Sodium 137 mEq/L (136-145); eGFR For African Americans > 60 (> 60); eGFR For Non-African Americans > 60 (> 60)
[2017-08-04] MEDS ORDERED: 0.9 % Sodium Chloride 1,000 ML IVC ONE (11:54)
[2017-08-04] MEDS ORDERED: Levofloxacin 750 MG/150 ML 750 MG/150 ML BAG IVPB ONE (12:39)
[2017-08-04] MEDS ORDERED: Albuterol 2.5 MG/3 ML NEBULIZER IH ONE (12:42)
--- NOTE | 2017-08-04 15:24 | Internal Med History&Physical ---
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 Admitted with COPD exacerbation. Plan: Intravenous antibiotics: Levofloxacin Imaging bronchodilators: Ipratropium. Intravenous corticosteroids: Solu-Medrol: Intravenous 40 mg every 8 hourly Close monitoring of respiratory status Close monitoring of heart rate/respiratory rate (2) JAIDA (obstructive sleep apnea) Current visit: No Status: Chronic Patient was to use his BiPAP in the right there should not be any problem for the same (3) Essential hypertension Current visit: No Status: Chronic The blood pressure is within well controlled environment. (4) Morbid obesity Current visit: No Status: Chronic Patient may benefit from the bariatric surgery (5) Diastolic CHF Current visit: No Status: Acute Likely diastolic CHF. will continue oral Lasix Qualifiers: Congestive heart failure chronicity: acute on chronic Qualified Code(s): I50.33 - Acute on chronic diastolic (congestive) heart failure (6) DVT prophylaxis Current visit: No Status: Acute SCD Medical decision making patient has a moderate to severe risk of worsening in spite of being on appropriate antibiotics due to underlying issues. Internal Medicine - H&P: HPI Chief complaint: Shortness of breath Admitted From: Emergency Dept Plans for Post Hospital Care: Home History of present illness: PCP: Dr. Vallejo Brief past medical history: Atrial fibrillation, COPD, DVT, GERD, hypertension, pulmonary embolism History of present medical illness: Patient is ongoing cough along with the shortness of breath for the past 3-4 weeks. Patient claims that in last 3-4 days his cough is getting really worse. Patient also realizes that there is a change in the color of the sputum. Patient claims that he he was here today for a CT scan of the chest. Patient was unable to lay down flat.Patient was asked to go to the emergency room for further evaluation. he denies chest pain , nausea, abdominal pain, diarrhea, dizziness or urinary difficulty. Workup in the emergency room: Patient was evaluated in the emergency room basic labs were drawn. Noted that d-dimer is elevated but patient is unable to lay down flat. Patient has a persistent wheezing. Reason for hospitalization: Possible COPD exacerbation. Family history: Non-contributory. Past Med Surg Social Fam HX - Past Medical History Medical history: atrial fibrillation, COPD, DVT, GERD, hypertension, pulmonary embolus, other Psychiatric history: no psych history - Past Surgical History Surgical History: herniorrhaphy, knee replacement, orthopedic, other, sinus surgery, other - Social History Smoking Status: Former smoker Packs per day: 0.5 Smokeless Tobacco Status: No Alcohol use: none Drug use: none - Family History Father Adopted: No Living Status: Hx Family Cardiac Disorders: Yes Hx Family Respiratory Disorders: Yes Hx Family Cancer: No Hx Family GI Disorders: No Hx Family Endocrine Disorder: No Hx Family Neuromuscular Disorders: No Hx Family Neurologic Disorders: No Hx Family HEENT Disorders: No Hx Family Autoimmune Disorders: No Mother Adopted: No Living Status: Hx Family Autoimmune Disorders: Yes Brother Adopted: No Family Member Ethnicity: Non- Living Status: Still Living Hx Family Cardiac Disorders: No Hx Family Respiratory Disorders: No Hx Family Cancer: Yes (gabe) Hx Family GI Disorders: No Hx Family Endocrine Disorder: No Hx Family Neuromuscular Disorders: No Hx Family Neurologic Disorders: No Hx Family HEENT Disorders: No Hx Family Autoimmune Disorders: No Internal Medicine - H&P: Meds Albuterol Sulfate [Albuterol Inhaler] 2 puff IH Q4HR PRN 04/24/15 [History] Allopurinol [Zyloprim] 300 mg PO QAM 04/24/15 [History] Budesonide/Formoterol 160/4.5 [Symbicort] 2 puff IH BID PRN 04/24/15 [History] Cholecalciferol (Vitamin D3) [Vitamin D3] 2,000 unit PO QAM 04/24/15 [History] HYDROcodone/Acet 7.5/325 mg [[place] 7.5-325 mg] 1 tab PO QID PRN 04/24/15 [ History] Omeprazole [PriLOSEC] 20 mg PO QAM 04/24/15 [History] Albuterol Neb [AccuNeb] 1.25 mg IH TID PRN 01/23/17 [History] Tiotropium [Spiriva] 18 mcg IH 0700 01/23/17 [History] Furosemide [Lasix] 40 mg PO QAM 03/05/17 [History] Rivaroxaban [Xarelto] 20 mg PO DAILY 03/05/17 [History] Lisinopril [Zestril] 20 mg PO DAILY 08/01/17 [History] Ipratropium Neb [Atrovent Neb] 0.5 mg IH PRN PRN 08/04/17 [History] 3 Allergy/AdvReac Type Severity Reaction Status Date / Time gabapentin [From Neurontin] AdvReac See Verified 07/26/17 14:02 Comments Hydromorphone [From Dilaudid] AdvReac Vomiting Verified 07/26/17 14:02 Pneumococcal Vaccine AdvReac Redness of Verified 07/26/17 14:02 Skin Tizanidine [From Zanaflex] AdvReac Hypotension Verified 08/01/17 11:05 All Systems PM: A 10-system review of systems was performed and is negative for pertinent findings except as documented above in the HPI. - Constitutional Constitutional: no chills, no fever(s), no night sweats - EENT Eyes: no change in vision, no discharge, no pain, no photophobia Ears: no ear discharge, no ear pain, no tinnitus Nose, mouth and throat: no dysphagia, no nasal discharge, no neck pain, no sore throat - Cardiovascular Cardiovascular ROS IM: diaphoresis, lightheadedness, palpitations, no chest pain , no dyspnea, no syncope - Respiratory Respiratory: cough, dyspnea, wheezing, excessive phlegm production, change in phlegm color - Gastrointestinal Gastrointestinal: no abdominal pain, no diarrhea, no hematemesis, no hematochezia, no melena, no nausea, no vomiting - Musculoskeletal Musculoskeletal ROS IM: no numbness, no tingling - Integumentary Integumentary IM: no rash, no unusual bruising - Neurological Neurological ROS: no confusion, no convulsions, no focal weakness, no numbness, no tingling, no tremor(s) - Hematologic/Lymphatic Hematologic/Lymphatic: no easy bruising - Constitutional Vitals: Temp Pulse Resp BP Pulse Ox 97.8 F 84 21 167/76 94 08/04/17 14:25 08/04/17 14:25 08/04/17 14:25 08/04/17 14:25 08/04/17 14:25 General appearance: Present: A&O X 3, morbidly obese, no acute distress, answers questions appropriately - Head Head exam: Present: atraumatic, normocephalic - Eye Eye exam: Present: PERRL, conjuntiva pink, sclera anicteric Pupils: Present: PERRL - Neck Neck exam general surgery: Present: supple, trachea midline. Absent: lymphadenopathy - Respiratory Respiratory exam: Present: CTAB. Absent: accessory muscle use, rales, rhonchi, wheezes - Cardiovascular Cardiovascular exam: Present: RRR, +S1, +S2. Absent: diastolic murmur, gallop, rubs, systolic murmur - GI/Abdominal GI/Abdominal exam: Present: normal bowel sounds, soft, no peritoneal signs. Absent: distended, tenderness - Extremities Exam Extremities exam: Present: warm, radial pulses palpable and symmetrical. Absent : calf tenderness, cyanotic, pedal edema - Neurological Exam Neurological exam: Present: CN II-XII intact, oriented X3, no focal deficits. Absent: pronater drift, facial droop, speech deficit - Skin Skin exam: Present: dry, intact Internal Med - H&P Results - Labs CBC & Chem 7: 08/04/17 11:34 08/04/17 11:34 Labs: Case discussed with the emergency room physician
[2017-08-04] MEDS ORDERED: Naloxone 0.4 MG/ML INJ IVP PRN (15:38)
[2017-08-04] MEDS ORDERED: *HR* HYDROcodone/Acet 7.5/325 mg TABLET PO PRN (15:42)
[2017-08-04] MEDS ORDERED: Ipratropium/Albuterol Neb 3 ML ONE (15:55)
[2017-08-04] MEDS: Ipratropium/Albuterol Neb 3 ML IH SCH ×3 (16:01→23:25)
[2017-08-04] MEDS: MethylPREDNISolone 40 MG/ML VIAL IVP SCH ×2 (17:17→23:13)
[2017-08-04] MEDS: Budesonide/Formoterol 160/4.5 MDI IH PRN (19:33)
[2017-08-05] MEDS: Ipratropium/Albuterol Neb 3 ML IH SCH ×6 (03:40→23:48)
[2017-08-05 04:31] LABS: Basophils % 0.2 %; Hematocrit 43.3 % (37.5-50.1); Hemoglobin 13.8 g/dL (12.9-16.9); Immature Granulocytes % 0.5 % (0-4); Lymphocytes # 0.4 K/mcL (0.6-4.6); Lymphocytes % 4.5 %; Mean Corpuscular HGB Conc 31.9 g/dL (31.6-35.5); Mean Corpuscular Volume 87.8 fL (83.0-100.0); Mean Platelet Volume 9.4 fL (9.4-12.4); Monocytes # 0.1 K/mcL (0.0-1.3); Monocytes % 1.1 %; Neutrophils # 9.2 K/mcL (1.6-8.9); Platelet Count 210 K/mcL (140-400); Red Blood Count 4.93 M/mcL (4.19-5.50); Red Cell Distribution Width 16.2 % (11.5-14.5); Segmented Neutrophils % 93.7 %
[2017-08-05 04:42] LABS: INR 1.2; Prothrombin Time 12.8 Seconds (9.4-12.1)
[2017-08-05 04:45] LABS: Activated Partial Thrombo Time 26.9 Seconds (26.0-36.0)
[2017-08-05 04:52] LABS: Alanine Aminotransferase 26 Units/L (0-55); Albumin 3.1 g/dL (3.5-5.0); Alkaline Phosphatase 84 Units/L (38-126); Aspartate Amino Transferase 24 Units/L (5-34); BUN/Creatinine Ratio 18 (6-26); Bilirubin,Total 0.7 mg/dL (0.2-1.2); Blood Urea Nitrogen 25 mg/dL (8-26); Calcium 9.2 mg/dL (8.6-10.8); Carbon Dioxide 22 mEq/L (19-29); Chloride 103 mEq/L (98-109); Chol/HDL Ratio 3.3 (0-4.9); Cholesterol 169 mg/dL (< 200); Globulin 3.2 g/dL (2.4-3.5); Glucose 240 mg/dL (70-99); HDL Cholesterol 51 mg/dL (40-59); LDL Cholesterol,Calculated 101 mg/dL (0-99); Magnesium 1.9 mg/dL (1.6-2.6); Osmolality,Calculated 294 (280-300); Phosphorous 2.4 mg/dL (2.3-4.7); Potassium 4.4 mEq/L (3.5-4.5); Sodium 136 mEq/L (136-145); Total Protein 6.3 g/dL (6.0-8.3); Triglycerides 85 mg/dL (< 150); eGFR For African Americans > 60 (> 60); eGFR For Non-African Americans 51 (> 60)
[2017-08-05] MEDS: MethylPREDNISolone 40 MG/ML VIAL IVP SCH ×2 (05:15→12:55)
[2017-08-05] MEDS ORDERED: Tiotropium 18 MCG inhalation IH SCH (07:00)
[2017-08-05] MEDS: Budesonide/Formoterol 160/4.5 MDI IH PRN (07:44)
[2017-08-05] MEDS ORDERED: *HR* Rivaroxaban 10 MG TABLET PO SCH (09:00)
[2017-08-05] MEDS ORDERED: Lisinopril 20 MG TABLET PO SCH (09:00)
[2017-08-05] MEDS ORDERED: Cholecalciferol (D-3) 1,000 UNIT TABLET PO SCH (09:00)
[2017-08-05] MEDS ORDERED: Levofloxacin 750 MG/150 ML 750 MG/150 ML BAG IVPB SCH (09:00)
[2017-08-05] MEDS ORDERED: Furosemide 40 MG TABLET PO SCH (09:00)
[2017-08-05] MEDS ORDERED: Budesonide/Formoterol 160/4.5 MDI IH SCH (10:00)
[2017-08-05] MEDS: Furosemide 40 MG/4 ML VIAL IVP SCH ×3 (15:49→17:37)
--- NOTE | 2017-08-05 16:33 | Internal Med Progress Note ---
Date of Encounter: 08/05/17 Time of Encounter: 16:28 - Assessment and plan (1) Hemoptysis, unspecified Current Visit: Yes Status: Acute Assessment and plan: Patient started to cough up red blood about 50 mL at 4:00 PM, I called pulmonology [place] [facility]. Discuss the treatment options. He recommended that to increase IV Solu-Medrol to 80 mg every 6, give every every 2 hours nebulizer, close monitoring. patient has normal platelets INR and hemoglobin for now. We will check H&H every 6 hours, if he if he has recurrent hemoptysis over 100 mL. patient is going be transferred to ICU. Faisal Rowland (2) Diastolic CHF Current Visit: No Status: Chronic Assessment and plan: Decompensated diastolic CHF due to orthopnea. Patient has leg swelling and unable to lie flat we will give IV Lasix Qualifiers: Congestive heart failure chronicity: acute on chronic Qualified Code(s): I50.33 - Acute on chronic diastolic (congestive) heart failure (3) COPD (chronic obstructive pulmonary disease) Current Visit: No Status: Chronic Assessment and plan: COPD exacerbation continue IV steroids and the levofloxacin Qualifiers: COPD type: emphysema Emphysema type: unspecified Qualified Code(s): J43.9 - Emphysema, unspecified (4) Renal failure (ARF), acute on chronic Current Visit: Yes Status: Acute Assessment and plan: We will close monitoring while on Lasix Qualifiers: Acute renal failure type: unspecified Chronic kidney disease stage: stage 2 (mild) Qualified Code(s): N17.9 - Acute kidney failure, unspecified; N18.2 - Chronic kidney disease, stage 2 (mild); N18.2 - Chronic kidney disease, stage 2 (mild) (5) JAIDA (obstructive sleep apnea) Current Visit: No Status: Chronic Assessment and plan: On home BiPAP (6) Essential hypertension Current Visit: No Status: Chronic Assessment and plan: Continue home medications (7) Morbid obesity Current Visit: No Status: Chronic Assessment and plan: Lifestyle modification - Time Spent With Patient Greater than 35 minutes - Subjective Interval history: This is a 72 years old male who has history of COPD, on 3 L nasal cannula at home, morbid obesity history of PE hypertension atrial fibrillation, he presented to emergency room for worsening shortness of SOB and was admitted her for COPD exacerbation. Patient was xarelto for PE and atrial fibrillation but to stop on 07/21 days for colonoscopy. I was called to see patient who is having active hemoptysis. He coughed up 50 mL blood, has diffuse wheezing. - Constitutional Vitals: Temp Pulse Resp BP Pulse Ox 97.2 F L 90 16 132/66 94 08/05/17 10:52 08/05/17 10:52 08/05/17 10:52 08/05/17 10:52 08/05/17 10:52 CONSTITUTIONAL: patient appears as an age appropriate male in no acute distress. EYES Clear sclerae, bilateral pupils are equal, reactive to light. EMOI. RESPIRATORY: No accessory muscle use, bilateral wheezing, no crackles/rales. CARDIOVASCULAR: Regular heart rate, normal S1 and S2, no murmurs GASTROINTESTINAL: bowel sounds present, soft, no tenderness. MUSCULOSKELETAL: Joints in normal range of motion, no clubbing, no edema, no cyanosis. Bilateral peripheral pulses 2+. NEUROLOGIC: CN II to XII are grossly intact, no focal neurological deficit. General appearance: Present: A&O X 3, morbidly obese, no acute distress, answers questions appropriately Internal Medicine: Result - Labs CBC & Chem 7: 08/05/17 04:16 08/05/17 04:16 Labs: Short CBC 08/05/17 Range/Units 04:16 WBC 9.8 (4.3-11.1) K/mcL Hgb 13.8 (12.9-16.9) g/dL Hct 43.3 (37.5-50.1) % Plt Count 210 (140-400) K/mcL Neutrophils # 9.2 H (1.6-8.9) K/mcL BMP 08/05/17 04:16 Sodium 136 Potassium 4.4 Chloride 103 Carbon Dioxide 22 BUN 25 Creatinine 1.38 H Glucose 240 H Calcium 9.2 Cardiac Enzymes 08/04/17 08/05/17 Range/Units 21:44 04:16 Troponin I 0.01 0.00 (0-0.03) ng/mL Liver Function 08/05/17 Range/Units 04:16 Total Bilirubin 0.7 (0.2-1.2) mg/dL AST 24 (5-34) Units/L ALT 26 (0-55) Units/L Alkaline Phosphatase 84 (38-126) Units/L Albumin 3.1 L (3.5-5.0) g/dL - ABG Interpretation ABG results: PT/INR, D-dimer PT 12.8 Seconds (9.4-12.1) H 08/05/17 04:16 D-Dimer 2394 ng/mLFEU (0-500) H 08/04/17 11:34 - VTE Documentation of Mechanical Device: Graduated compression elastic hosiery Consult Discharge Plan - Plan Referrals: Mirela Whitaker CNP [Primary Care Provider] - Judson Vallejo MD [Family Provider] -
[2017-08-05] MEDS: Lisinopril 20 MG TABLET PO SCH (17:36)
[2017-08-05] MEDS: Levofloxacin 750 MG/150 ML 750 MG/150 ML BAG IVPB SCH (17:37)
[2017-08-05] MEDS: methylPREDNISolone 125 MG/2 ML VIAL IVP SCH (17:59)
[2017-08-05] MEDS: Albuterol 2.5 MG/3 ML NEBULIZER IH SCH ×4 (19:46→23:50)
[2017-08-05] MEDS: Budesonide/Formoterol 160/4.5 MDI IH SCH (20:26)
[2017-08-06] MEDS ORDERED: Albuterol 2.5 MG/3 ML NEBULIZER IH PRN (00:11)
[2017-08-06] MEDS: methylPREDNISolone 125 MG/2 ML VIAL IVP SCH ×5 (00:14→23:35)
[2017-08-06] MEDS: *HR* HYDROcodone/Acet 7.5/325 mg TABLET PO PRN ×2 (00:14→21:38)
[2017-08-06] MEDS: Ipratropium/Albuterol Neb 3 ML IH SCH ×6 (04:58→23:54)
[2017-08-06 08:11] LABS: Albumin 3.2 g/dL (3.5-5.0); Basophils % 0.1 %; Bilirubin,Total 0.6 mg/dL (0.2-1.2); Calcium 9.1 mg/dL (8.6-10.8); Globulin 3.1 g/dL (2.4-3.5); Hematocrit 41.5 % (37.5-50.1); Hemoglobin 13.6 g/dL (12.9-16.9); Immature Granulocytes % 0.6 % (0-4); Lymphocytes # 0.5 K/mcL (0.6-4.6); Lymphocytes % 2.7 %; Mean Corpuscular HGB Conc 32.8 g/dL (31.6-35.5); Mean Corpuscular Hemoglobin 28.8 pg (28.0-33.3); Mean Corpuscular Volume 87.9 fL (83.0-100.0); Monocytes # 0.4 K/mcL (0.0-1.3); Neutrophils # 17.3 K/mcL (1.6-8.9); Platelet Count 230 K/mcL (140-400); Potassium 4.4 mEq/L (3.5-4.5); Red Blood Count 4.72 M/mcL (4.19-5.50); Red Cell Distribution Width 16.4 % (11.5-14.5); Segmented Neutrophils % 94.6 %; Total Protein 6.3 g/dL (6.0-8.3)
[2017-08-06] MEDS: Levofloxacin 750 MG/150 ML 750 MG/150 ML BAG IVPB SCH (08:12)
[2017-08-06] MEDS: Furosemide 40 MG/4 ML VIAL IVP SCH (08:12)
[2017-08-06] MEDS: Lisinopril 20 MG TABLET PO SCH (08:12)
--- NOTE | 2017-08-06 08:30 | Internal Med Progress Note ---
Date of Encounter: 08/06/17 Time of Encounter: 08:15 - Assessment and plan (1) Hemoptysis, unspecified Current Visit: Yes Status: Acute Assessment and plan: Patient started to cough up red blood about 50 mL at 4:00 PM on 08/05 I called pulmonology macroeconomics professor. Discuss the treatment options. He recommended that to increase IV Solu-Medrol to 80 mg every 6, give every every 2 hours nebulizer, close monitoring. patient has normal platelets INR and hemoglobin for now. H&H has been stable. Xarelto DC'd. overnight patient's doing well no recurrent hemoptysis. He still has diffuse wheezing, unable to lie flat, leg swelling improved. Still unable to get CT PE studies. We will start heparin drip for now (2) Diastolic CHF Current Visit: No Status: Chronic Assessment and plan: Decompensated diastolic CHF due to orthopnea. Patient has leg swelling and unable to lie flat, have to stop Lasix due to worsening creatinine Qualifiers: Congestive heart failure chronicity: acute on chronic Qualified Code(s): I50.33 - Acute on chronic diastolic (congestive) heart failure (3) Atrial fibrillation Current Visit: No Status: Chronic Assessment and plan: Patient has history of atrial fibrillation and DVT PE has been on chronic xarelto, xarelto was discontinued , will start heparin drip due to one episode of Hemoptysis and ARF Qualifiers: Atrial fibrillation type: chronic Qualified Code(s): I48.2 - Chronic atrial fibrillation (4) COPD (chronic obstructive pulmonary disease) Current Visit: No Status: Chronic Assessment and plan: COPD exacerbation continue IV steroids and the levofloxacin, pulmonary is consulted Qualifiers: COPD type: emphysema Emphysema type: unspecified Qualified Code(s): J43.9 - Emphysema, unspecified (5) Renal failure (ARF), acute on chronic Current Visit: Yes Status: Acute Assessment and plan: We will stop Lasix due to creatinine trending up Qualifiers: Acute renal failure type: unspecified Chronic kidney disease stage: stage 2 (mild) Qualified Code(s): N17.9 - Acute kidney failure, unspecified; N18.2 - Chronic kidney disease, stage 2 (mild); N18.2 - Chronic kidney disease, stage 2 (mild) (6) JAIDA (obstructive sleep apnea) Current Visit: Yes Status: Chronic Assessment and plan: All was on BiPAP at home (7) Essential hypertension Current Visit: No Status: Chronic Assessment and plan: Continue home medications (8) Morbid obesity Current Visit: Yes Status: Chronic Assessment and plan: Lifestyle modification - Time Spent With Patient Greater than 35 minutes - Subjective Interval history: This is a 72 years old male who has history of COPD, on 3 L nasal cannula at home, morbid obesity history of PE hypertension atrial fibrillation, he presented to emergency room for worsening shortness of SOB and was admitted her for COPD exacerbation. Patient was xarelto for PE and atrial fibrillation but to stop on 07/21 days for colonoscopy. Patient had the one episode of hemoptysis yesterday. He coughed up 50 mL blood, has diffuse wheezing. Overnight patient is doing well no recurrent hemoptysis. He still have wheezing. His neck swelling improved. We will continue IV steroids and ATB nebulizer. - Constitutional Vitals: Temp Pulse Resp BP Pulse Ox 97.8 F 86 18 114/79 94 08/06/17 07:43 08/06/17 07:43 08/06/17 07:43 08/06/17 07:43 08/06/17 07:43 CONSTITUTIONAL: patient appears as an age appropriate male in no acute distress. EYES Clear sclerae, bilateral pupils are equal, reactive to light. EMOI. RESPIRATORY: No accessory muscle use, bilateral diffuse wheezing, no crackles/ rales. CARDIOVASCULAR: Regular heart rate, normal S1 and S2, no murmurs GASTROINTESTINAL: bowel sounds present, soft, no tenderness. MUSCULOSKELETAL: Joints in normal range of motion, no clubbing, no edema, no cyanosis. Bilateral peripheral pulses 2+. NEUROLOGIC: CN II to XII are grossly intact, no focal neurological deficit. General appearance: Present: A&O X 3, morbidly obese, no acute distress, answers questions appropriately Internal Medicine: Result - Labs CBC & Chem 7: 08/06/17 07:47 08/06/17 07:47 Labs: Short CBC 08/06/17 Range/Units 07:47 WBC 18.3 H D (4.3-11.1) K/mcL Hgb 13.6 (12.9-16.9) g/dL Hct 41.5 (37.5-50.1) % Plt Count 230 (140-400) K/mcL Neutrophils # 17.3 H (1.6-8.9) K/mcL BMP 08/06/17 07:47 Sodium 136 Potassium 4.4 Chloride 103 Carbon Dioxide 22 BUN 47 H D Creatinine 1.67 H Glucose 222 H Calcium 9.1 Liver Function 08/06/17 Range/Units 07:47 Total Bilirubin 0.6 (0.2-1.2) mg/dL AST 24 (5-34) Units/L ALT 25 (0-55) Units/L Alkaline Phosphatase 75 (38-126) Units/L Albumin 3.2 L (3.5-5.0) g/dL - ABG Interpretation ABG results: PT/INR, D-dimer PT 12.8 Seconds (9.4-12.1) H 08/05/17 04:16 D-Dimer 2394 ng/mLFEU (0-500) H 08/04/17 11:34 - VTE Documentation of Mechanical Device: Graduated compression elastic hosiery Consult Discharge Plan - Plan Referrals: Judson Vallejo MD [Family Provider] - Mirela Whitaker CNP [Primary Care Provider] -
[2017-08-06 08:33] LABS: INR 1.6; Prothrombin Time 17.6 Seconds (9.4-12.1)
[2017-08-06] MEDS: Tiotropium 18 MCG inhalation IH SCH (08:36)
[2017-08-06] MEDS: Budesonide/Formoterol 160/4.5 MDI IH SCH ×2 (08:36→20:26)
[2017-08-06 09:44] LABS: Activated Partial Thrombo Time 31.5 Seconds (26.0-36.0)
[2017-08-06] MEDS: Heparin 25,000 UNIT/500 ML D5W 25,000 UNIT/500 ML MLS IVC SCH ×2 (10:00→23:31)
--- NOTE | 2017-08-06 10:42 | Pulmonology Consult Note ---
Date of Encounter: 08/06/17 Time of Encounter: 08:30 Assessment and Plan (1) Hemoptysis, unspecified Current Visit: Yes Status: Resolved I discussed treatment plan with the primary team and suspect this was related to anticoagulation with patient having an exacerbation and cough. There is no more hemoptysis and I would be very careful with any anticoagulation including heparin and and certainly avoid any bolus heparin. Patient is not able to lie flat to have a CT angiogram. This can be done later on. Thank you very much for consultation and no plan for bronchoscopy since this is related to anticoagulation. Monitor H&H. (2) Elevated d-dimer Current Visit: Yes Status: Acute This is not a reliable test in a patient with comorbidities and acute disease. (3) Acute exacerbation of chronic obstructive airways disease Current Visit: Yes Status: Acute I discussed with primary team to increase his systemic steroid and continue bronchodilators with empiric antibiotics. (4) JAIDA (obstructive sleep apnea) Current Visit: Yes Status: Chronic Advised patient to bring his PAP unit to use it at night. History of Present Illness Consult date: 08/06/17 Requesting physician: Pushpa Kinney Reason for consult: other (Hemoptysis) Chief complaint: Shortness of breath History of present illness: This is a very pleasant 72-year-old gentleman who is known to us from outpatient service who presented to the emergency room with productive cough, shortness of breath for the ast few weeks. Patient has a history of pulmonary embolism and patient was asked to have a CT angiogram for further evaluation and due to his dyspnea he was not able to lie flat. Patient was started on anticoagulation then he had episode of hemoptysis and I was called for an evaluation. Since treatment was changed to my recommendations from yesterday he denies any hemoptysis. Patient continued to have wheezing and denies any significant chest pain and overall is feeling better. Patient has history of obstructive sleep apnea but he does not remember his setting at home and was not able to tolerate noninvasive ventilation due to higher pressure. Patient also has a history of atrial fibrillation and DVT but denies any leg swellings. Past Med Surg Social Fam HX - Past Medical History Medical history: atrial fibrillation, COPD, DVT, GERD, hypertension, pulmonary embolus, other Psychiatric history: no psych history - Past Surgical History Surgical History: herniorrhaphy, knee replacement, orthopedic, other, sinus surgery, other - Social History Smoking Status: Former smoker Packs per day: 0.5 Smokeless Tobacco Status: No Alcohol use: none Drug use: none - Family History Father Adopted: No Living Status: Hx Family Cardiac Disorders: Yes Hx Family Respiratory Disorders: Yes Hx Family Cancer: No Hx Family GI Disorders: No Hx Family Endocrine Disorder: No Hx Family Neuromuscular Disorders: No Hx Family Neurologic Disorders: No Hx Family HEENT Disorders: No Hx Family Autoimmune Disorders: No Mother Adopted: No Living Status: Hx Family Autoimmune Disorders: Yes Brother Adopted: No Family Member Ethnicity: Non- Living Status: Still Living Hx Family Cardiac Disorders: No Hx Family Respiratory Disorders: No Hx Family Cancer: Yes (gabe) Hx Family GI Disorders: No Hx Family Endocrine Disorder: No Hx Family Neuromuscular Disorders: No Hx Family Neurologic Disorders: No Hx Family HEENT Disorders: No Hx Family Autoimmune Disorders: No Medications and Allergies Albuterol Sulfate [Albuterol Inhaler] 2 puff IH Q4HR PRN 04/24/15 [History] Allopurinol [Zyloprim] 300 mg PO QAM 04/24/15 [History] Budesonide/Formoterol 160/4.5 [Symbicort] 2 puff IH BID PRN 04/24/15 [History] Cholecalciferol (Vitamin D3) [Vitamin D3] 2,000 unit PO QAM 04/24/15 [History] HYDROcodone/Acet 7.5/325 mg [[place] 7.5-325 mg] 1 tab PO QID PRN 04/24/15 [ History] Omeprazole [PriLOSEC] 20 mg PO QAM 04/24/15 [History] Albuterol Neb [AccuNeb] 1.25 mg IH TID PRN 01/23/17 [History] Tiotropium [Spiriva] 18 mcg IH 0700 01/23/17 [History] Furosemide [Lasix] 40 mg PO QAM 03/05/17 [History] Rivaroxaban [Xarelto] 20 mg PO DAILY 03/05/17 [History] Lisinopril [Zestril] 20 mg PO DAILY 08/01/17 [History] Ipratropium Neb [Atrovent Neb] 0.5 mg IH PRN PRN 08/04/17 [History] 3 Allergy/AdvReac Type Severity Reaction Status Date / Time gabapentin [From Neurontin] AdvReac See Verified 07/26/17 14:02 Comments Hydromorphone [From Dilaudid] AdvReac Vomiting Verified 07/26/17 14:02 Pneumococcal Vaccine AdvReac Redness of Verified 07/26/17 14:02 Skin Tizanidine [From Zanaflex] AdvReac Hypotension Verified 08/01/17 11:05 All Systems: A 10-system review of systems was performed and is negative for pertinent findings except as documented above in the HPI. Physical Examination Vital Signs: Vital Signs, Last 4 Hours Temp Pulse Resp BP Pulse Ox 08/06/17 07:43 97.8 F 86 18 114/79 94 General appearance: no acute distress Eyes: nonicteric ENT: oropharynx moist Mallampati (class): 4 Neck: supple, no lymphadenopathy Effort: mildly labored Inspection: normal Auscultation: bilateral: wheezes Percussion: bilateral: not dull Cardiovascular: irregular rhythm Gastrointestinal: normoactive bowel sounds, non-distended Extremities: no cyanosis, no edema normal mental status, non-focal exam mood appropriate Results - Laboratory Findings CBC and BMP: 08/06/17 07:47 08/06/17 07:47 PT/INR, D-dimer PT 17.6 Seconds (9.4-12.1) H 08/06/17 07:47 D-Dimer 2394 ng/mLFEU (0-500) H 08/04/17 11:34 Abnormal lab findings: Abnormal lab results WBC 18.3 K/mcL (4.3-11.1) H D 08/06/17 07:47 RDW 16.4 % (11.5-14.5) H 08/06/17 07:47 Neutrophils # 17.3 K/mcL (1.6-8.9) H 08/06/17 07:47 Lymphocytes # 0.5 K/mcL (0.6-4.6) L 08/06/17 07:47 PT 17.6 Seconds (9.4-12.1) H 08/06/17 07:47 D-Dimer 2394 ng/mLFEU (0-500) H 08/04/17 11:34 BUN 47 mg/dL (8-26) H D 08/06/17 07:47 Creatinine 1.67 mg/dL (0.72-1.25) H 08/06/17 07:47 Est GFR ( Amer) 49 (> 60) L 08/06/17 07:47 Est GFR (Non-Af Amer) 41 (> 60) L 08/06/17 07:47 BUN/Creatinine Ratio 28 (6-26) H 08/06/17 07:47 Glucose 222 mg/dL (70-99) H 08/06/17 07:47 Calculated Osmolality 301 (280-300) H 08/06/17 07:47 B-Natriuretic Peptide 144 pg/mL (0-100) H 08/06/17 07:47 Albumin 3.2 g/dL (3.5-5.0) L 08/06/17 07:47 Albumin/Globulin Ratio 1.0 (1.1-2.2) L 08/06/17 07:47 LDL Cholesterol, Calc 101 mg/dL (0-99) H 08/05/17 04:16 - Diagnostic Findings Chest x-ray: report reviewed, image reviewed - Clinical Findings Intake & Output: Intake & Output 08/05/17 08/06/17 08/06/17 23:59 07:59 15:59 Intake Total 360 / 360 Output Total 850 / 850 Balance -850 / -850 360 / 360 Weight 162.4 kg 161.2 kg Consult Discharge Plan - Plan Referrals: Judson Vallejo MD [Family Provider] - Mirela Whitaker CNP [Primary Care Provider] -
[2017-08-06 16:29] LABS: Activated Partial Thrombo Time 110.5 Seconds (26.0-36.0)
[2017-08-06 16:53] LABS: Heparin anti-factor XA UFH 1.2 IU/mL (0.30-0.70)
[2017-08-07] MEDS: Ipratropium/Albuterol Neb 3 ML IH SCH ×5 (04:00→20:17)
[2017-08-07 05:12] LABS: Basophils % 0.1 %; Hemoglobin 13.2 g/dL (12.9-16.9); Immature Granulocytes % 1.1 % (0-4); Lymphocytes # 0.5 K/mcL (0.6-4.6); Lymphocytes % 3.2 %; Mean Corpuscular Hemoglobin 28.8 pg (28.0-33.3); Mean Corpuscular Volume 87.3 fL (83.0-100.0); Mean Platelet Volume 10.1 fL (9.4-12.4); Monocytes # 0.4 K/mcL (0.0-1.3); Monocytes % 2.2 %; Neutrophils # 14.8 K/mcL (1.6-8.9); Platelet Count 218 K/mcL (140-400); Red Blood Count 4.58 M/mcL (4.19-5.50); Red Cell Distribution Width 16.2 % (11.5-14.5); Segmented Neutrophils % 93.4 %
[2017-08-07 05:30] LABS: Calcium 9.1 mg/dL (8.6-10.8); Potassium 4.1 mEq/L (3.5-4.5)
[2017-08-07 05:34] LABS: Activated Partial Thrombo Time 116.1 Seconds (26.0-36.0)
[2017-08-07] MEDS: methylPREDNISolone 125 MG/2 ML VIAL IVP SCH ×3 (05:42→16:44)
[2017-08-07 05:56] LABS: Heparin anti-factor XA UFH 1.1 IU/mL (0.30-0.70)
[2017-08-07] MEDS: Tiotropium 18 MCG inhalation IH SCH (07:41)
[2017-08-07] MEDS: Budesonide/Formoterol 160/4.5 MDI IH SCH ×2 (07:41→20:18)
[2017-08-07] MEDS: Levofloxacin 750 MG/150 ML 750 MG/150 ML BAG IVPB SCH (08:06)
[2017-08-07] MEDS: Lisinopril 20 MG TABLET PO SCH (08:06)
[2017-08-07] MEDS ORDERED: *HR* Dextrose 50 % in Water (Syg) 50 ML SYRINGE IVP PRN (08:58)
[2017-08-07] MEDS ORDERED: Dextrose Gel 15 GM PO PRN ×2 (08:58)
[2017-08-07] MEDS ORDERED: D5% in Water 1,000 ML IVC PRN (08:58)
--- NOTE | 2017-08-07 10:01 | Pulmonology Progress Note ---
<Lawrence Reyes - Last Filed: 08/07/17 10:15> Date of Encounter: 08/07/17 Time of Encounter: 10:01 Assessment and Plan (1) Acute exacerbation of chronic obstructive airways disease Current Visit: Yes Status: Acute Increased systemic steroid and continue bronchodilators with empiric antibiotics. (2) Hemoptysis, unspecified Current Visit: Yes Status: Resolved Suspect hemoptysis was related to anticoagulation with COPD exacerbation and cough. There is no more hemoptysis No plan for bronchoscopy since this is related to anticoagulation. Monitor H&H. Be very careful with any anticoagulation including heparin and certainly avoid any bolus heparin. Patient is not able to lie flat to have a CT angiogram. This can be done later on. (3) Elevated d-dimer Current Visit: Yes Status: Acute This is not a reliable test in a patient with comorbidities and acute disease. DVT ultrasound of bilateral legs pending. (4) JAIDA (obstructive sleep apnea) Current Visit: Yes Status: Chronic Advised patient to bring his PAP unit to use it at night. Patient reports inability to comply with home Bipap last PM because he felt like he couldn't get enough oxygen. (5) Morbid obesity Current Visit: Yes Status: Chronic Diet and lifestyle modification encouraged Subjective Principal diagnosis: AECOPD Interval history: Patient seen and examined sitting up at bedside. He denies further hemoptysis at this time and is currently onm Heparin ggt. He is on 5L O2 via NC and reports inability to comply with home Bipap last PM because he felt like he couldn't get enough oxygen. DVT ultrasound of bilateral legs pending. is at bedside and all questions were answered. Objective PUL Vital signs: Last Vital Signs Temp 98.0 F 08/07/17 08:00 Pulse 72 08/07/17 08:00 Resp 14 08/07/17 08:00 BP 123/71 08/07/17 08:00 Pulse Ox 96 08/07/17 08:00 General appearance: no acute distress (moridly obese) Eyes: nonicteric ENT: oropharynx dry Mallampati (class): 3 Neck: supple Effort: normal Auscultation: bilateral: wheezes Percussion: bilateral: not dull Cardiovascular: irregular rhythm Gastrointestinal: normoactive bowel sounds, soft, non-tender Extremities: no cyanosis, no edema Gait: normal posture normal mental status mood appropriate, affect normal Results - Laboratory Findings CBC and BMP: 08/07/17 04:56 08/07/17 04:56 PT/INR, D-dimer PT 17.6 Seconds (9.4-12.1) H 08/06/17 07:47 D-Dimer 2394 ng/mLFEU (0-500) H 08/04/17 11:34 Abnormal lab findings: Abnormal lab results WBC 15.8 K/mcL (4.3-11.1) H 08/07/17 04:56 RDW 16.2 % (11.5-14.5) H 08/07/17 04:56 Neutrophils # 14.8 K/mcL (1.6-8.9) H 08/07/17 04:56 Lymphocytes # 0.5 K/mcL (0.6-4.6) L 08/07/17 04:56 PT 17.6 Seconds (9.4-12.1) H 08/06/17 07:47 APTT 116.1 Seconds (26.0-36.0) H* 08/07/17 04:56 D-Dimer 2394 ng/mLFEU (0-500) H 08/04/17 11:34 Heparin Anti-Xa, Unfract 1.10 IU/mL (0.30-0.70) H* 08/07/17 04:56 Sodium 132 mEq/L (136-145) L 08/07/17 04:56 BUN 56 mg/dL (8-26) H 08/07/17 04:56 Creatinine 1.60 mg/dL (0.72-1.25) H 08/07/17 04:56 Est GFR ( Amer) 52 (> 60) L 08/07/17 04:56 Est GFR (Non-Af Amer) 43 (> 60) L 08/07/17 04:56 BUN/Creatinine Ratio 35 (6-26) H 08/07/17 04:56 Glucose 334 mg/dL (70-99) H 08/07/17 04:56 Calculated Osmolality 303 (280-300) H 08/07/17 04:56 B-Natriuretic Peptide 144 pg/mL (0-100) H 08/06/17 07:47 Albumin 3.2 g/dL (3.5-5.0) L 08/06/17 07:47 Albumin/Globulin Ratio 1.0 (1.1-2.2) L 08/06/17 07:47 LDL Cholesterol, Calc 101 mg/dL (0-99) H 08/05/17 04:16 - Clinical Findings Intake & Output: Intake & Output 08/06/17 08/07/17 08/07/17 23:59 07:59 15:59 Intake Total 620 / 620 250 / 250 280 / 280 Output Total 750 / 750 600 / 600 Balance -130 / -130 250 / 250 -320 / -320 Weight 162.2 kg - VTE Documentation of Mechanical Device: Graduated compression elastic hosiery Consult Discharge Plan - Plan Referrals: Judson Vallejo MD [Family Provider] - Mirela Whitaker CNP [Primary Care Provider] - 08/16/17 10:00 am () <Antoni River - Last Filed: 08/07/17 17:57> Date of Encounter: 08/07/17 Objective PUL Vital signs: Last Vital Signs Temp 97.9 F 08/07/17 11:32 Pulse 79 08/07/17 11:32 Resp 21 08/07/17 16:03 BP 147/70 08/07/17 11:32 Pulse Ox 92 08/07/17 16:03 Results - Laboratory Findings CBC and BMP: 08/07/17 04:56 08/07/17 04:56 PT/INR, D-dimer PT 17.6 Seconds (9.4-12.1) H 08/06/17 07:47 D-Dimer 2394 ng/mLFEU (0-500) H 08/04/17 11:34 Abnormal lab findings: Abnormal lab results WBC 15.8 K/mcL (4.3-11.1) H 08/07/17 04:56 RDW 16.2 % (11.5-14.5) H 08/07/17 04:56 Neutrophils # 14.8 K/mcL (1.6-8.9) H 08/07/17 04:56 Lymphocytes # 0.5 K/mcL (0.6-4.6) L 08/07/17 04:56 PT 17.6 Seconds (9.4-12.1) H 08/06/17 07:47 APTT 68.6 Seconds (26.0-36.0) H 08/07/17 12:25 D-Dimer 2394 ng/mLFEU (0-500) H 08/04/17 11:34 Heparin Anti-Xa, Unfract 1.10 IU/mL (0.30-0.70) H* 08/07/17 04:56 Sodium 132 mEq/L (136-145) L 08/07/17 04:56 BUN 56 mg/dL (8-26) H 08/07/17 04:56 Creatinine 1.60 mg/dL (0.72-1.25) H 08/07/17 04:56 Est GFR ( Amer) 52 (> 60) L 08/07/17 04:56 Est GFR (Non-Af Amer) 43 (> 60) L 08/07/17 04:56 BUN/Creatinine Ratio 35 (6-26) H 08/07/17 04:56 Glucose 334 mg/dL (70-99) H 08/07/17 04:56 Calculated Osmolality 303 (280-300) H 08/07/17 04:56 B-Natriuretic Peptide 144 pg/mL (0-100) H 08/06/17 07:47 Albumin 3.2 g/dL (3.5-5.0) L 08/06/17 07:47 Albumin/Globulin Ratio 1.0 (1.1-2.2) L 08/06/17 07:47 LDL Cholesterol, Calc 101 mg/dL (0-99) H 08/05/17 04:16 - Clinical Findings Intake & Output: Intake & Output 08/07/17 08/07/17 08/07/17 07:59 15:59 23:59 Intake Total 250 / 250 640 / 640 Output Total 600 / 600 Balance 250 / 250 40 / 40 Weight 162.2 kg 162.2 kg - Attending Attestation I saw the patient with the resident agree with History and Physical exam findings. Labs and Radiology were reviewed SPEECH LANGUAGE PATHOLOGIST: Patient is conscious oriented x3 following commands NECK : No JVD appreciated Pulmonary : Patient didnt have any more episodes of hemoptysois , continue the current regimen for treatment of his COPD exacerbation with antibiotics , patient is on Heparin very low probability of PE if his hemoptysis recurs please stop the heparin drip , if stable for another 24 hrs bleeding plaza will change to Xarelto and to monitor on it , i think most of the hemoptysis is due to chronic bronchitiis expected to settle down with antibiotics and steroids Cardiac : Hemodynamically stable , To continue diuresis as tolerated Nutrition/GI: No acute issues Renal : UOP and Labs reviewed no acute issues Heme onc : No acute issues Code status: Full Code Family/POA: Met with Patient's all the concerns and questions were answered
--- NOTE | 2017-08-07 10:43 | Electrocardiograph Report ---
[employer] [email or web address]@ Test Date: 2017-08-04 Pat Name: Jamie Fernando Department: 104 Room: 2N07 Gender: Manager Strategic: ALON : 1945 Requested By: Manish Lim Order Number: [id number] Reading MD: Orlando Whyte MD Measurements Intervals [place] Rate: 85 P: PA: 0 QRS: 1 QRSD: 84 T: 57 QT: 337 QTc: 379 Interpretive Statements ATRIAL FIBRILLATION LOW QRS VOLTAGE [QRS DEFLECTION < 0.5/1.0 mV IN LIMB/CHEST LEADS] PATTERN CONSISTENT WITH PULMONARY DISEASE Electronically Signed On 08-07-2017 10:42:30 EST by Orlando Whyte MD
[2017-08-07] MEDS: Insulin LISPRO 300 UNITS/3 ML VIAL SQ SCH ×3 (12:10→16:48)
--- NOTE | 2017-08-07 13:22 | Internal Med Progress Note ---
<Ranjit Healy - Last Filed: 08/07/17 14:20> Date of Encounter: 08/07/17 Time of Encounter: 09:00 - Assessment and plan (1) Acute exacerbation of chronic obstructive airways disease Current Visit: Yes Status: Acute Assessment and plan: Acute on chronic respiratory failure with patient has known history of COPD, pulmonary hypertension in the setting of COPD exacerbation and hemoptysis. Currently requires 5 L nasal cannula with a baseline of 3 L nasal cannula oxygen. - Patient continues to require increased oxygen demand and is been seen by pulmonary since admission. - Continue on IV steroids, bronchodilator therapy and empiric antibiotics. (2) Elevated d-dimer Current Visit: Yes Status: Acute Assessment and plan: Patient has an elevated d-dimer, increased shortness of breath and increased oxygen demand, history of pulmonary embolism. Patient was on chronic anticoagulation which diminishes the potential for pulmonary embolism but does not preclude it. - Patient unable to obtain CTA of the chest due to inability to lay flat. - Xarelto was held secondary to hemoptysis, patient currently on heparin drip. If tolerated patient may require Lovenox subcutaneous injections for therapeutic dosing with potential PE. (3) Morbid obesity Current Visit: Yes Status: Chronic Assessment and plan: Lifestyle modification (4) JAIDA (obstructive sleep apnea) Current Visit: Yes Status: Chronic Assessment and plan: Patient has known JAIDA, patient has BiPAP at bedside. (5) Hemoptysis, unspecified Current Visit: Yes Status: Resolved Assessment and plan: Patient started to cough up red blood about 50 mL at 4:00 PM on 08/05 - Xarelto was held - Patient seen by pulmonology, suspected that the hemoptysis was in the setting of anticoagulation. No plans for bronchoscopy at this time. - CTA of the chest will be recommended. (6) RAFAEL (acute kidney injury) Current Visit: No Status: Acute Assessment and plan: Patient has worsening of acute kidney injury secondary to excess diuresis. Lasix was held yesterday secondary to worsening creatinine. - Acute kidney injury in the setting of diastolic heart failure exacerbation. Plan: - Continue fluid restrictions - Continue to hold Lasix - Monitor renal function daily. (7) Atrial fibrillation Current Visit: No Status: Chronic Assessment and plan: Patient has history of atrial fibrillation and DVT PE has been on chronic xarelto, xarelto was discontinued with hemoptysis. - Ray currently controlled. - Patient currently on heparin drip Plan: - Continue heparin drip currently, we will need to treat other underlying medical condition, patient will need CT angios the chest potential pulmonary embolism. - Continue cardiac monitoring Qualifiers: Atrial fibrillation type: chronic Qualified Code(s): I48.2 - Chronic atrial fibrillation (8) COPD (chronic obstructive pulmonary disease) Current Visit: No Status: Chronic Assessment and plan: COPD exacerbation symptoms improving. Patient continues to require 5 L nasal cannula oxygen with a baseline of 3. - Continue IV steroids - Continue scheduled respiratory therapy - Continue weaning oxygen to baseline - Continue Levaquin Qualifiers: COPD type: emphysema Emphysema type: unspecified Qualified Code(s): J43.9 - Emphysema, unspecified (9) Diastolic CHF Current Visit: No Status: Chronic Assessment and plan: Decompensated diastolic CHF due to orthopnea. Patient has leg swelling and unable to lie flat. - Known Diastolic HF with past echocardiogram in 10/2016 with EF 65% - Lasix was held yesterday do to worsening renal function. Plan: - Cardiac Diet - Optimize cardiac medications - Dieresis as tolerated - 2L Fluid restrictions - Continue cardiac monitoring. Qualifiers: Congestive heart failure chronicity: acute on chronic Qualified Code(s): I50.33 - Acute on chronic diastolic (congestive) heart failure (10) Hyperglycemia Current Visit: Yes Status: Acute Assessment and plan: Glucose levels around 336 while taking elevated doses of IV steroids. Before meals at bedtime glucose checks Low-dose sliding scale insulin adjusted as necessary to maintain appropriate glucose levels 80-140 - Subjective Interval history: Mr. Fernando 72-year-old male is seen and evaluated at patient bedside this morning. He is alert awake interactive no acute distress. He feels that his breathing is much improved but he continues to have shortness of breath and inability to lay flat which he states has been progressive over last 7 days. While sitting up he feels that he is at his baseline for breathing. 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 He denies coughing up any blood today, abdominal discomforts, worsening shortness of breath, chest pain or chest pressure, nausea vomiting diarrhea or constipation. He says that he chronically retains fluid in his lower extremities and that they are roughly around baseline. - Constitutional Vitals: Temp Pulse Resp BP Pulse Ox 97.9 F 79 18 147/70 94 08/07/17 11:32 08/07/17 11:32 08/07/17 12:29 08/07/17 11:32 08/07/17 12:29 General appearance: Present: A&O X 3, morbidly obese, no acute distress, answers questions appropriately - Head Head exam: Present: atraumatic, normocephalic - Eye Eye exam: Present: PERRL, conjuntiva pink, sclera anicteric Pupils: Present: PERRL - Neck Neck exam general surgery: Present: supple, trachea midline. Absent: lymphadenopathy - Respiratory Respiratory exam: Present: wheezes - Cardiovascular Cardiovascular exam: Present: irregular rhythm - GI/Abdominal GI/Abdominal exam: Present: normal bowel sounds, soft, no peritoneal signs. Absent: distended, tenderness - Extremities Exam Additional comments: 2+ pitting edema bilateral lower extremities, signs of venous stasis dermatitis. Patient wearing ANGEL hose stockings Internal Medicine: Result - Labs CBC & Chem 7: 08/07/17 04:56 08/07/17 04:56 Labs: Short CBC 08/07/17 Range/Units 04:56 WBC 15.8 H (4.3-11.1) K/mcL Hgb 13.2 (12.9-16.9) g/dL Hct 40.0 (37.5-50.1) % Plt Count 218 (140-400) K/mcL Neutrophils # 14.8 H (1.6-8.9) K/mcL BMP 08/07/17 04:56 Sodium 132 L Potassium 4.1 Chloride 101 Carbon Dioxide 19 BUN 56 H Creatinine 1.60 H Glucose 334 H Calcium 9.1 - ABG Interpretation ABG results: PT/INR, D-dimer PT 17.6 Seconds (9.4-12.1) H 08/06/17 07:47 D-Dimer 2394 ng/mLFEU (0-500) H 08/04/17 11:34 - VTE Documentation of Mechanical Device: Graduated compression elastic hosiery Consult Discharge Plan - Plan Referrals: Judson Vallejo MD [Family Provider] - Mirela Whitaker CNP [Primary Care Provider] - 08/16/17 10:00 am () <Alex Angeles H - Last Filed: 08/07/17 16:16> Date of Encounter: 08/07/17 - Constitutional Vitals: Temp Pulse Resp BP Pulse Ox 97.9 F 79 21 147/70 92 08/07/17 11:32 08/07/17 11:32 08/07/17 16:03 08/07/17 11:32 08/07/17 16:03 Internal Medicine: Result - Labs CBC & Chem 7: 08/07/17 04:56 08/07/17 04:56 Labs: Short CBC 08/07/17 Range/Units 04:56 WBC 15.8 H (4.3-11.1) K/mcL Hgb 13.2 (12.9-16.9) g/dL Hct 40.0 (37.5-50.1) % Plt Count 218 (140-400) K/mcL Neutrophils # 14.8 H (1.6-8.9) K/mcL BMP 08/07/17 04:56 Sodium 132 L Potassium 4.1 Chloride 101 Carbon Dioxide 19 BUN 56 H Creatinine 1.60 H Glucose 334 H Calcium 9.1 - ABG Interpretation ABG results: PT/INR, D-dimer PT 17.6 Seconds (9.4-12.1) H 08/06/17 07:47 D-Dimer 2394 ng/mLFEU (0-500) H 08/04/17 11:34 - Attending Attestation Acute diastolic CHF exacerbation in combination with acute COPD exacerbation possibly from acute bacterial bronchitis Continue Levaquin, Solu-Medrol and start IV Bumex Strict I's and O's and daily weight I examined this patient and my medical decision-making was reviewed with the Resident Physician. I agree with the documented findings, disposition and treatment plan as described except to the extent set forth below.
[2017-08-07] MEDS: *HR* HYDROcodone/Acet 7.5/325 mg TABLET PO PRN (16:43)
[2017-08-07] MEDS: Bumetanide 1 MG/4 ML VIAL IVP SCH (16:44)
[2017-08-07] MEDS: Heparin 25,000 UNIT/500 ML D5W 25,000 UNIT/500 ML MLS IVC SCH (20:05)
[2017-08-07] MEDS ORDERED: Insulin LISPRO 300 UNITS/3 ML VIAL SQ SCH (21:00)
[2017-08-08] MEDS: Ipratropium/Albuterol Neb 3 ML IH SCH ×4 (00:28→11:03)
[2017-08-08 02:10] LABS: Basophils % 0.2 %; Hematocrit 40.3 % (37.5-50.1); Hemoglobin 13.4 g/dL (12.9-16.9); Lymphocytes # 0.5 K/mcL (0.6-4.6); Lymphocytes % 3.4 %; Mean Corpuscular HGB Conc 33.3 g/dL (31.6-35.5); Mean Corpuscular Hemoglobin 28.5 pg (28.0-33.3); Mean Corpuscular Volume 85.7 fL (83.0-100.0); Mean Platelet Volume 9.7 fL (9.4-12.4); Monocytes # 0.5 K/mcL (0.0-1.3); Platelet Count 200 K/mcL (140-400); Red Cell Distribution Width 15.9 % (11.5-14.5); Segmented Neutrophils % 91.4 %
[2017-08-08 02:15] LABS: INR 1.2; Prothrombin Time 12.5 Seconds (9.4-12.1)
[2017-08-08 02:31] LABS: Albumin 3.1 g/dL (3.5-5.0); Albumin/Globulin Ratio 1.1 (1.1-2.2); Bilirubin,Total 0.4 mg/dL (0.2-1.2); Calcium 8.7 mg/dL (8.6-10.8); Globulin 2.9 g/dL (2.4-3.5); Potassium 3.9 mEq/L (3.5-4.5)
[2017-08-08] MEDS: methylPREDNISolone 125 MG/2 ML VIAL IVP SCH (05:49)
[2017-08-08] MEDS: Budesonide/Formoterol 160/4.5 MDI IH SCH (07:21)
[2017-08-08 07:36] VITALS: BP 123/67
[2017-08-08] MEDS: Lisinopril 20 MG TABLET PO SCH (07:50)
[2017-08-08] MEDS: Levofloxacin 750 MG/150 ML 750 MG/150 ML BAG IVPB SCH (07:51)
[2017-08-08] MEDS: Bumetanide 1 MG/4 ML VIAL IVP SCH (07:51)
[2017-08-08] MEDS: Insulin LISPRO 300 UNITS/3 ML VIAL SQ SCH (07:52)
[2017-08-08] MEDS: *HR* HYDROcodone/Acet 7.5/325 mg TABLET PO PRN (07:58)
--- NOTE | 2017-08-08 08:18 | Pulmonology Progress Note ---
<Lawrence Reyes - Last Filed: 08/08/17 10:27> Date of Encounter: 08/08/17 Time of Encounter: 08:17 Assessment and Plan (1) Acute exacerbation of chronic obstructive airways disease Status: Acute Continue 6 more days of Levaquin to complete 10 days of treatment Continue 14 to 21 day Prednisone taper Follow up with Dr. River in office within 2 weeks. (2) Hemoptysis, unspecified Status: Resolved Suspect hemoptysis was related to anticoagulation with COPD exacerbation and cough. There is no more hemoptysis. Okay to resume Xarelto No plan for bronchoscopy since this is related to anticoagulation. Monitor H&H. Patient is not able to lie flat to have a CT angiogram. This can be done later on. (3) Elevated d-dimer Status: Acute This is not a reliable test in a patient with comorbidities and acute disease. DVT ultrasound of bilateral legs completed Continue Xarelto (4) JAIDA (obstructive sleep apnea) Status: Chronic Advised patient to bring his BIPAP unit to use it at night. Patient reports inability to comply with home Bipap last PM due to sinus congestion (5) Morbid obesity Status: Chronic Diet and lifestyle modification encouraged Subjective Principal diagnosis: AECOPD Interval history: Patient seen and examined sitting in bed. He denies further hemoptysis at this time and is currently on Heparin ggt. He is on 5L humidified O2 via NC and reports inability to comply with home Bipap last PM due to sinus congestion. is at bedside and all questions were answered. Objective PUL Vital signs: Last Vital Signs Temp 97.9 F 08/08/17 07:31 Pulse 76 08/08/17 07:31 Resp 16 08/08/17 07:31 BP 123/67 08/08/17 07:31 Pulse Ox 96 08/08/17 07:31 General appearance: no acute distress (obese) Eyes: nonicteric ENT: oropharynx moist Mallampati (class): 3 Neck: supple Effort: normal Auscultation: bilateral: wheezes (expiratory) Percussion: bilateral: not dull Cardiovascular: regular rate and rhythm Gastrointestinal: normoactive bowel sounds, soft Integumentary: normal Extremities: no cyanosis, edema Musculoskeletal: no deformities Gait: normal posture normal mental status, non-focal exam mood appropriate, affect normal Results - Laboratory Findings CBC and BMP: 08/08/17 02:03 08/08/17 02:03 PT/INR, D-dimer PT 12.5 Seconds (9.4-12.1) H 08/08/17 02:03 D-Dimer 2394 ng/mLFEU (0-500) H 08/04/17 11:34 Abnormal lab findings: Abnormal lab results WBC 13.1 K/mcL (4.3-11.1) H 08/08/17 02:03 RDW 15.9 % (11.5-14.5) H 08/08/17 02:03 Neutrophils # 12.0 K/mcL (1.6-8.9) H 08/08/17 02:03 Lymphocytes # 0.5 K/mcL (0.6-4.6) L 08/08/17 02:03 PT 12.5 Seconds (9.4-12.1) H 08/08/17 02:03 APTT 56.5 Seconds (26.0-36.0) H 08/08/17 02:03 D-Dimer 2394 ng/mLFEU (0-500) H 08/04/17 11:34 Heparin Anti-Xa, Unfract 1.10 IU/mL (0.30-0.70) H* 08/07/17 04:56 BUN 44 mg/dL (8-26) H D 08/08/17 02:03 Creatinine 1.46 mg/dL (0.72-1.25) H 08/08/17 02:03 Est GFR ( Amer) 58 (> 60) L 08/08/17 02:03 Est GFR (Non-Af Amer) 47 (> 60) L 08/08/17 02:03 BUN/Creatinine Ratio 30 (6-26) H 08/08/17 02:03 Glucose 331 mg/dL (70-99) H 08/08/17 02:03 POC Glucose 409 (58-89) H* 08/07/17 19:45 Calculated Osmolality 306 (280-300) H 08/08/17 02:03 AST 36 Units/L (5-34) H 08/08/17 02:03 B-Natriuretic Peptide 144 pg/mL (0-100) H 08/06/17 07:47 Albumin 3.1 g/dL (3.5-5.0) L 08/08/17 02:03 LDL Cholesterol, Calc 101 mg/dL (0-99) H 08/05/17 04:16 - Diagnostic Findings U/S of Legs: report reviewed - Clinical Findings Intake & Output: Intake & Output 08/07/17 08/08/17 08/08/17 23:59 07:59 15:59 Intake Total 215 / 215 156 / 156 Output Total 1100 / 1100 850 / 850 Balance -885 / -885 -694 / -694 Weight 164.3 kg - VTE Documentation of Mechanical Device: Intermittent pneumatic compression device Consult Discharge Plan - Plan Instructions: Metformin (By mouth), Rivaroxaban (By mouth), Chronic Obstructive Pulmonary Disease (DC) Additional Instructions: 1. Follow-up with your primary care provider in the next 3-5 days 2. Take all prescriptions as prescribed, any concerns or questions contact her primary care provider. 3. Return to the emergency department if: Have recurrence of blood in sputum, worsening of respiratory status, increased oxygen demand or any other concerning medical symptoms or signs. Taper prednisone as follows: 40 mg daily for 3 days, 30 mg for 3 days, 20 mg for 3 days, 10 mg for 3 days Start lasix 40 mg in the morning and 20 mg in the afternoon COmplete 2 more days of levaquin May resume Xarelto Follow up with pulmonary service in 2 weeks Referrals: Judson Vallejo MD [Family Provider] - Antoni River MD [Partnered Physician] - 08/21/17 9:30 am Mirela Whitaker CNP [Primary Care Provider] - 08/16/17 10:00 am () Prescriptions: Furosemide [Lasix] 40 mg PO BID 30 Days tablet levoFLOXacin [Levaquin] 750 mg PO DAILY 8 Days #8 tablet Metformin HCl [Glucophage Xr] 500 mg PO DAILY 30 Days #30 tab.er.24h predniSONE [PredniSONE] 10 mg PO DAILY 12 Days tablet <Antoni River - Last Filed: 08/08/17 15:19> Date of Encounter: 08/08/17 Objective PUL Vital signs: Last Vital Signs Temp 97.9 F 08/08/17 07:31 Pulse 76 08/08/17 07:31 Resp 16 08/08/17 11:03 BP 123/67 08/08/17 07:31 Pulse Ox 92 08/08/17 11:03 Results - Laboratory Findings CBC and BMP: 08/08/17 02:03 08/08/17 02:03 PT/INR, D-dimer PT 12.5 Seconds (9.4-12.1) H 08/08/17 02:03 D-Dimer 2394 ng/mLFEU (0-500) H 08/04/17 11:34 Abnormal lab findings: Abnormal lab results WBC 13.1 K/mcL (4.3-11.1) H 08/08/17 02:03 RDW 15.9 % (11.5-14.5) H 08/08/17 02:03 Neutrophils # 12.0 K/mcL (1.6-8.9) H 08/08/17 02:03 Lymphocytes # 0.5 K/mcL (0.6-4.6) L 08/08/17 02:03 PT 12.5 Seconds (9.4-12.1) H 08/08/17 02:03 APTT 94.4 Seconds (26.0-36.0) H D 08/08/17 07:45 D-Dimer 2394 ng/mLFEU (0-500) H 08/04/17 11:34 Heparin Anti-Xa, Unfract 1.10 IU/mL (0.30-0.70) H* 08/07/17 04:56 BUN 44 mg/dL (8-26) H D 08/08/17 02:03 Creatinine 1.46 mg/dL (0.72-1.25) H 08/08/17 02:03 Est GFR ( Amer) 58 (> 60) L 08/08/17 02:03 Est GFR (Non-Af Amer) 47 (> 60) L 08/08/17 02:03 BUN/Creatinine Ratio 30 (6-26) H 08/08/17 02:03 Glucose 331 mg/dL (70-99) H 08/08/17 02:03 POC Glucose 409 (58-89) H* 08/07/17 19:45 Hemoglobin A1c 7.7 % (-5.6) H 08/08/17 07:45 Calculated Osmolality 306 (280-300) H 08/08/17 02:03 AST 36 Units/L (5-34) H 08/08/17 02:03 B-Natriuretic Peptide 144 pg/mL (0-100) H 08/06/17 07:47 Albumin 3.1 g/dL (3.5-5.0) L 08/08/17 02:03 LDL Cholesterol, Calc 101 mg/dL (0-99) H 08/05/17 04:16 - Clinical Findings Intake & Output: Intake & Output 08/07/17 08/08/17 08/08/17 23:59 07:59 15:59 Intake Total 215 / 215 156 / 156 240 / 240 Output Total 1100 / 1100 850 / 850 Balance -885 / -885 -694 / -694 240 / 240 Weight 164.3 kg - Attending Attestation I saw the patient with the resident agree with History and Physical exam findings. Labs and Radiology were reviewed PERSONNEL TECHNICIAN: Patient is conscious oriented x3 following commands sitting not in any respiratory distress NECK : No JVD appreciated Pulmonary : Patient didnt have any more episodes of hemoptysis , patient is almost back to baseline , to do prolong prednisone taper as documented in residents note to finish total 7 day course of levofloxacin. To encourage to use home BIPAP every night . Will follow up on 08/21/2017 COUNSELED Patient to call office if there is worsening of symptoms . To continue home bronchodilator regimen. Cardiac : Hemodynamically stable , To send home on Lasix Nutrition/GI: No acute issues Renal : UOP and Labs reviewed no acute issues Heme onc : No acute issues Code status: Full Code Family/POA: Met with Patient's all the concerns and questions were answered
--- NOTE | 2017-08-08 08:19 | Discharge Summary ---
<Ranjit Healy Giovani - Last Filed: 08/08/17 08:31> Date of Encounter: 08/08/17 Time of Encounter: 07:45 - Discharge Diagnosis (1) Acute exacerbation of chronic obstructive airways disease Priority: Primary Status: Acute (2) Elevated d-dimer Priority: Secondary Status: Acute (3) Morbid obesity Priority: Secondary Status: Chronic (4) JAIDA (obstructive sleep apnea) Priority: Secondary Status: Chronic (5) Hemoptysis, unspecified Priority: Primary Status: Resolved (6) RAFAEL (acute kidney injury) Priority: Primary Status: Acute (7) Atrial fibrillation Priority: Primary Status: Chronic Qualifiers: Atrial fibrillation type: chronic Qualified Code(s): I48.2 - Chronic atrial fibrillation (8) COPD (chronic obstructive pulmonary disease) Priority: Secondary Status: Chronic Qualifiers: COPD type: emphysema Emphysema type: unspecified Qualified Code(s): J43.9 - Emphysema, unspecified (9) Diastolic CHF Priority: Secondary Status: Chronic Qualifiers: Congestive heart failure chronicity: acute on chronic Qualified Code(s): I50.33 - Acute on chronic diastolic (congestive) heart failure (10) Hyperglycemia Priority: Primary Status: Acute - Discharge Medications Prescriptions: Furosemide [Lasix] 40 mg PO BID 30 Days tablet Levofloxacin [Levaquin] 750 mg PO DAILY #2 tablet predniSONE [PredniSONE] 10 mg PO DAILY 12 Days tablet Home Medications: Albuterol Sulfate [Albuterol Inhaler] 2 puff IH Q4HR PRN 04/24/15 [History] Allopurinol [Zyloprim] 300 mg PO QAM 04/24/15 [History] Budesonide/Formoterol 160/4.5 [Symbicort] 2 puff IH BID PRN 04/24/15 [History] Cholecalciferol (Vitamin D3) [Vitamin D3] 2,000 unit PO QAM 04/24/15 [History] HYDROcodone/Acet 7.5/325 mg [Antimony 7.5-325 mg] 1 tab PO QID PRN 04/24/15 [ History] Omeprazole [PriLOSEC] 20 mg PO QAM 04/24/15 [History] Albuterol Neb [AccuNeb] 1.25 mg IH TID PRN 01/23/17 [History] Tiotropium [Spiriva] 18 mcg IH 0700 01/23/17 [History] Rivaroxaban [Xarelto] 20 mg PO DAILY 03/05/17 [History] Lisinopril [Zestril] 20 mg PO DAILY 08/01/17 [History] Ipratropium Neb [Atrovent Neb] 0.5 mg IH PRN PRN 08/04/17 [History] Furosemide [Lasix] 40 mg PO BID 30 Days tablet 08/08/17 [Rx] Levofloxacin [Levaquin] 750 mg PO DAILY #2 tablet 08/08/17 [Rx] predniSONE [PredniSONE] 10 mg PO DAILY 12 Days tablet 08/08/17 [Rx] Allergies/Adverse Reactions: 3 Allergy/AdvReac Type Severity Reaction Status Date / Time gabapentin [From Neurontin] AdvReac See Verified 07/26/17 14:02 Comments Hydromorphone [From Dilaudid] AdvReac Vomiting Verified 07/26/17 14:02 Pneumococcal Vaccine AdvReac Redness of Verified 07/26/17 14:02 Skin Tizanidine [From Zanaflex] AdvReac Hypotension Verified 08/01/17 11:05 Procedures/tests Complete & Pending: Procedures Performed prior 72 hours Category Date Time Status Venous Doppler [EV venous imaging LE BI] Stat Y 08/07/17 09:00 Completed Date of admission: 08/04/17 15:38 Primary care physician: Mirela Whitaker CNP Consults: 08/06/17 07:28 Consult to Nurse Navigator [CONS] Routine Comment: 08/06/17 08:13 Consult to Pulmonology [CONS] Routine Consulting Provider: [facility] Reason for Consult: hemoptysis Call Completed: Yes Discharging clinician: Ranjit Healy Anticipated date of discharge: 08/08/17 - Patient Status Disposition: Home, Self-Care Condition: Fair Functional capacity at discharge: uses cane/walker Overall status at discharge: patient is progressing back to baseline - Discharge Instructions Instructions: Rivaroxaban (By mouth), Chronic Obstructive Pulmonary Disease (DC ) Follow Up With: Judson Vallejo MD [Family Provider] - Mirela Whitaker CNP [Primary Care Provider] - 08/16/17 10:00 am () Additional Instructions: 1. Follow-up with your primary care provider in the next 3-5 days 2. Take all prescriptions as prescribed, any concerns or questions contact her primary care provider. 3. Return to the emergency department if: Have recurrence of blood in sputum, worsening of respiratory status, increased oxygen demand or any other concerning medical symptoms or signs. Taper prednisone as follows: 40 mg daily for 3 days, 30 mg for 3 days, 20 mg for 3 days, 10 mg for 3 days Start lasix 40 mg in the morning and 20 mg in the afternoon COmplete 2 more days of levaquin May resume Xarelto Follow up with pulmonary service in 2 weeks - Diet and Activity Activity: increase activity as tolerated Diet: advance to your usual diet Interval History: Mr. Fernando 72-year-old male history of COPD oxygen dependent with 3-4 L at home , atrial fibrillation, morbid obesity, DVT, pulmonary embolism, hypertension, GERD presented to the emergency department on 08/04/2017 with worsening arrest first as, increase sputum production, coughing and difficulty laying flat. He was admitted to the general medical floor with respiratory failure acute on chronic, COPD exacerbation treatment. After admission he started coughing up red blood and pulmonology was consult and, his anticoagulation was discontinued and he was continued on treatment with IV Solu-Medrol and breathing treatments with increased oxygen demand around 5-6 L nasal cannula oxygen. He was also treated for diastolic heart failure exacerbation with lower extremity edema, worsening of respiration status clinical findings of CHF exacerbation. Lasix was soon discontinued after his creatinine started to elevate. Mr. Fernando was started on IV heparin with his chronic atrial fibrillation and history of chronic anticoagulation. Pulmonology evaluated the patient and he no longer had any hemoptysis. It was suspected the hemoptysis was secondary to anticoagulation and inflammation secondary to COPD exacerbation. No plans for bronchoscopy during this inpatient stay. CT angiogram of the chest was unable to be performed during this inpatient stay as the patient was unable to lay flat. Mr. Fernando demonstrated clinical improvement since the time of admission was evaluated on 08/08/2017 and deems stable for discharge. His IV heparin was discontinued and he was placed back on his Xarelto therapy. During his inpatient stay is also found to be hyperglycemic in the setting of steroid use. His glucoses were on the upper end of 300 and he was started on sliding scale insulin. Patient denies any history of diabetes, it was discussed he has close follow-up with his primary care provider and monitoring of his glucose levels. It was discussed that he has close follow-up with his primary care provider after discharge and to monitor for any recurrence of hemoptysis. Mr. Fernando demonstrated understanding and agreement with this plan. Of note Mr. Fernando had a colonoscopy done on 08/01/2017 that demonstrated hemorrhoids on perianal exam, one small polyp in the proximal ascending colon which was removed with hot biopsy forceps. 3 polyps in the sigmoid colon, in the proximal ascending colon and mid descending colon removed. Multiple small, nonbleeding polyps in the distal sigmoid colon for which resection was not attempted. Surgical Pathology Report [Continued, Page 2] Name: Jamie Fernando Patient Name: Jamie Fernando Page 2 of 2 [facility] Department of Pathology [address] [place] [address] Patient Name: Jamie Fernando Page 1 of 2 Final Diagnosis: A. Ascending colon #1, biopsy Tubular adenoma. B. Ascending colon #2, biopsy: No diagnostic abnormality (deeper sections examined). C. Mid ascending colon, biopsy: Fragments of tubulovillous adenoma. D. Sigmoid colon, biopsy: Fragments of hyperplastic polyp. - Repeat colonoscopy in 1 year for surveillance based on pathology results. Hospital course: Mr. Fernando is a 72 year old male - Time Spent with Patient Total time spent providing and/or coordinating discharge services: - Constitutional Vitals: Temp Pulse Resp BP Pulse Ox 97.9 F 76 16 123/67 96 08/08/17 07:31 08/08/17 07:31 08/08/17 07:31 08/08/17 07:31 08/08/17 07:31 General appearance: Present: A&O X 3, morbidly obese, no acute distress, answers questions appropriately Exam: General: Patient alert, awake, oriented 3, interactive, in no acute distress HEENT: Normocephalic, atraumatic, pupils equal reactive to light, nasal cavity patent and open septum median position, oral mucosa moist, neck supple trachea midline no palpable lymphadenopathy, no thyromegaly. Chest: Symmetric bilateral correlating with respiratory effort, effort nonlabored. Cardiac: Irregularly irregular heart rate and rhythm, Radial pulses 2+ bilateral , posterior tibial and dorsal pedal pulses 2+ bilateral. Respiratory: Minor crackles in bilateral lung bases. Abdomen: Soft, obese, nontender, positive bowel sounds, no palpable masses appreciated on examination Extremities: Symmetric bilateral, bilateral lower extremities with 2+ pitting edema, chronic venous stasis changes. Neurologic: No focal deficits appreciated on examination. Face symmetric, muscle strength symmetric bilateral upper and lower extremities. - VTE Documentation of Mechanical Device: Intermittent pneumatic compression device <Alex Angeles Tawny - Last Filed: 08/08/17 10:11> Date of Encounter: 08/08/17 Procedures/tests Complete & Pending: Procedures Performed prior 72 hours Category Date Time Status Venous Doppler [EV venous imaging LE BI] Stat Y 08/07/17 09:00 Completed Date of admission: 08/04/17 15:38 Primary care physician: Mirela Whitaker CNP Consults: 08/06/17 07:28 Consult to Nurse Navigator [CONS] Routine Comment: 08/06/17 08:13 Consult to Pulmonology [CONS] Routine Consulting Provider: [facility] Reason for Consult: hemoptysis Call Completed: Yes Hospital course: Mr. Fernando is a 72 year old male diagnosed with acute on chronic resp failure due to Acute diastolic CHF exacerbation in combination with acute COPD exacerbation possibly from acute bacterial bronchitis and hemoptysis - Time Spent with Patient Total time spent providing and/or coordinating discharge services: Greater than 30 minutes (40 min) - Constitutional Vitals: Temp Pulse Resp BP Pulse Ox 97.9 F 76 16 123/67 96 08/08/17 07:31 08/08/17 07:31 08/08/17 07:31 08/08/17 07:31 08/08/17 07:31
[2017-08-08 08:50] LABS: Hemoglobin A1C 7.7 %
[2017-08-08] MEDS ORDERED: *HR* Rivaroxaban 10 MG TABLET PO SCH ×2 (11:23→17:00)
== END 2017-08-08 12:28 | disposition home or self-care (01) | DRG 190 ==
LOC: 3BNU 10:47 → EMEROO 10:47 → 3BNU 13:44 → SUATTDRO 15:38 → 2NNU 08-05 17:15
PROVIDERS: ADMIT Internal Medicine; ATTEND Internal Medicine